=== PATIENT | female | born 1960 | race Caucasian/White ===

== ENCOUNTER 2016-04-08 15:36 | Emergency (ER) | payer OTHER ==
[2016-04-08] MEDS ORDERED: HYDROCODONE/ACETAMINOPHEN 5-325 MG TABLET PO ONE (16:05)
--- NOTE | 2016-04-08 16:05 | ER Document Report ---
ED Medical Screen (RME) - General Stated Complaint: FALL,LEFT KNEE PAIN Mode of Arrival: Wheelchair Information source: Patient Notes: 55 y/o F presents to ED c/o posterior left knee pain. Reports tripped on dog's leash. Denies numbness or tingling. I have greeted and performed a rapid initial assessment of this patient. A comprehensive ED assessment and evaluation of the patient, analysis of test results and completion of the medical decision making process will be conducted by additional ED providers. TRAVEL OUTSIDE OF THE [place] IN LAST 30 DAYS: No - Related Data Allergies/Adverse Reactions: levofloxacin [From Levaquin] Allergy (Verified 04/08/16 16:03) Past Medical History - Past Medical History Cardiac Medical History: Reports: Hx Hypertension Pulmonary Medical History: Reports: Hx Asthma, Hx Bronchitis Neurological Medical History: Reports: Hx Migraine Endocrine Medical History: Reports: Hx Diabetes Mellitus Type 2 GI Medical History: Reports: Hx Gastroesophageal Reflux Disease Past Surgical History: Reports: Hx Cardiac Surgery - Repair vsd, Hx Orthopedic Surgery - Left hand - Immunizations Hx Diphtheria, Pertussis, Tetanus Vaccination: Yes Physical Exam - Vital signs Vitals: Temp Pulse Resp BP Pulse Ox 98.0 F 78 16 139/75 H 97 04/08/16 15:59 04/08/16 15:59 04/08/16 15:59 04/08/16 15:59 04/08/16 15:59 - General General appearance: Appears well, Alert In distress: None - Respiratory Respiratory status: No respiratory distress Course - Vital Signs Vital signs: Temp Pulse Resp BP Pulse Ox 98.0 F 78 16 139/75 H 97 04/08/16 15:59 04/08/16 15:59 04/08/16 15:59 04/08/16 15:59 04/08/16 15:59
--- NOTE | 2016-04-08 18:08 | ER Document Report ---
HPI - HPI Patient complains to provider of: knee injury Onset: This morning Onset/Duration: Gradual Quality of pain: Achy Pain Level: 4 Context: Patient states she was walking her dog and tripped over the leash falling on her left knee. Patient states she continued to walk without significant pain that whenever she returned home and walked up her steps that the pain increased. Patient reports increased pain with flexion of her left knee. Associated Symptoms: Other - Left knee injury Exacerbated by: Movement, Walking Relieved by: Denies Similar symptoms previously: No Recently seen / treated by doctor: No - ROS ROS below otherwise negative: Yes Systems Reviewed and Negative: Yes All other systems reviewed and negative - CONSTITUTIONAL Constitutional: DENIES: Fever - REPRODUCTIVE Reproductive: DENIES: : - MUSCULOSKELETAL Musculoskeletal: REPORTS: Extremity pain - Left knee. 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 Family History: Reviewed & Not Pertinent, Malignancy - Mom- breast Ca, Other - Brother-HTN/FL Patient has suicidal ideation: No Patient has homicidal ideation: No - Past Medical History Cardiac Medical History: Reports: Hx Hypertension Pulmonary Medical History: Reports: Hx Asthma, Hx Bronchitis Neurological Medical History: Reports: Hx Migraine Endocrine Medical History: Reports: Hx Diabetes Mellitus Type 2 Renal/ Medical History: Denies: Hx Peritoneal Dialysis GI Medical History: Reports: Hx Gastroesophageal Reflux Disease Past Surgical History: Reports: Hx Cardiac Surgery - Repair vsd, Hx Orthopedic Surgery - Left hand - Immunizations Hx Diphtheria, Pertussis, Tetanus Vaccination: Yes Vertical Provider Document - CONSTITUTIONAL Agree With Documented VS: Yes Exam Limitations: No Limitations General Appearance: WD/WN, No Apparent Distress - INFECTION CONTROL TRAVEL OUTSIDE OF THE [place] IN LAST 30 DAYS: No - HEENT HEENT: Atraumatic, Normocephalic - NECK Neck: Normal Inspection, Supple - RESPIRATORY Respiratory: No Respiratory Distress O2 Sat by Pulse Oximetry: 97 - CARDIOVASCULAR Pulses: Normal: Dorsalis pedis - BACK Back: Normal Inspection - MUSCULOSKELETAL/EXTREMETIES Musculoskeletal/Extremeties: MAEW, Tender - Patient with left knee joint tenderness with flexion, No Edema Notes: Few small abrasions to the anterior aspect of left knee. No joint effusion. No laxity with varus or valgus maneuvers. - NEURO Level of Consciousness: Awake, Alert, Appropriate Motor/Sensory: No Motor Deficit - DERM Integumentary: Warm, Dry Course - Vital Signs Vital signs: Temp Pulse Resp BP Pulse Ox 98.0 F 78 16 139/75 H 97 04/08/16 15:59 04/08/16 15:59 04/08/16 15:59 04/08/16 15:59 04/08/16 15:59 - Diagnostic Test Radiology reviewed: Reports reviewed Procedures - Immobilization Left Knee Pre-Proc Neuro Vasc Exam: Normal Immobilizer type: Knee immobilizer Performed by: PCT Post-Proc Neuro Vasc Exam: Normal Alignment checked and good: Yes Discharge - Discharge Clinical Impression: Left knee sprain Qualifiers: Encounter type: initial encounter Involved ligament of knee: unspecified ligament Qualified Code(s): S83.92XA - Sprain of unspecified site of left knee, initial encounter Condition: Stable Disposition: HOME, SELF-CARE Instructions: Use of Crutches ([facility]), Ice & Elevation ([facility]), Oral Narcotic Medication ([facility]), Sprained Knee ([facility]), Knee Immobilizing Splint ([facility]) Additional Instructions: Return immediately for any new or worsening symptoms Followup with your primary care provider, call tomorrow to make a followup appointment Weightbearing as tolerated Follow-up with orthopedic DrJuan Carlos for further evaluation of left knee joint pain Prescriptions: Oxycodone HCl/Acetaminophen [Percocet 5-325 mg Tablet] 1 tab PO ASDIR PRN #15 tablet PRN Reason: Forms: Return to Work Referrals: DOMINGUEZ FOOTE MD [Primary Care Provider] - Follow up as needed [facility] [Provider Group] - Follow up in 3-5 days
[2016-04-08 19:54] VITALS: BP 132/84
== END 2016-04-08 19:49 | disposition home or self-care (01) ==
LOC: ER 15:36
DX: S83.92XA Sprain of unspecified site of left knee, initial encounter (principal); M25.562 Pain in left knee; X58.XXXA Exposure to other specified factors, initial encounter
CPT/HCPCS: 99283; 73562; L1830

== ENCOUNTER 2017-01-12 12:00 | Emergency (ER) | payer OTHER ==
[2017-01-12] MEDS ORDERED: IPRATROPIUM/ALBUTEROL 0.5-2.5 MG/3 ML AMPUL NEB ONE (12:21)
--- NOTE | 2017-01-12 12:23 | ER Document Report ---
ED Medical Screen (RME) - General Chief Complaint: Shortness Of Breath Stated Complaint: COUGH,HEADACHE,SHORTNESS OF BREATH Time Seen by Provider: 01/12/17 12:21 Mode of Arrival: Ambulatory Information source: Patient TRAVEL OUTSIDE OF THE [place] IN LAST 30 DAYS: No - HPI Patient complains to provider of: cough, wheeze Onset: Other - pt. has h/o asthma as a child with c/o of several week h/o productive cough , intermittent wheeze, sinus pressure and GARCIA. Did get flu shot this year. - Related Data Allergies/Adverse Reactions: levofloxacin [From Levaquin] Allergy (Verified 04/08/16 16:03) Home Medications: Current Home Medications Amitriptyline HCl 50 mg PO QHS 01/12/17 [History] Cimetidine [Tagamet Hb] 200 mg PO DAILY 01/12/17 [History] Diltiazem HCl [Diltiazem 24Hr ER] 2 tab PO DAILY 01/12/17 [History] Losartan/Hydrochlorothiazide [Losartan-Hctz 100-25 mg Tab] 1 each PO DAILY 01/12 [History] Pantoprazole Sodium [Protonix] 20 mg PO DAILY 01/12/17 [History] Past Medical History - Social History Chew tobacco use (# tins/day): No Frequency of alcohol use: None Drug Abuse: None - Past Medical History Cardiac Medical History: Reports: Hx Hypertension Pulmonary Medical History: Reports: Hx Asthma, Hx Bronchitis Neurological Medical History: Reports: Hx Migraine Endocrine Medical History: Reports: Hx Diabetes Mellitus Type 2 Renal/ Medical History: Denies: Hx Peritoneal Dialysis GI Medical History: Reports: Hx Gastroesophageal Reflux Disease Past Surgical History: Reports: Hx Cardiac Surgery - Repair vsd, Hx Orthopedic Surgery - Left hand - Immunizations Hx Diphtheria, Pertussis, Tetanus Vaccination: Yes Physical Exam - Vital signs Vitals: Temp Pulse Resp BP 99.7 F 107 H 20 152/78 H 01/12/17 12:06 01/12/17 12:06 01/12/17 12:06 01/12/17 12:06 Course - Vital Signs Vital signs: Temp Pulse Resp BP Pulse Ox 99.7 F 107 H 20 152/78 H 94 01/12/17 12:06 01/12/17 12:06 01/12/17 12:06 01/12/17 12:06 01/12/17 12:07
--- NOTE | 2017-01-12 12:50 | RADIOLOGY REPORT (SQ) ---
EXAM DESCRIPTION: CHEST PA/LAT COMPLETED DATE/TIME: 01/12/2017 12:42 pm REASON FOR STUDY: cough COMPARISON: 07/24/2015 EXAM PARAMETERS: NUMBER OF VIEWS: two views TECHNIQUE: Digital Frontal and Lateral radiographic views of the chest acquired. RADIATION DOSE: NA LIMITATIONS: none FINDINGS: LUNGS AND PLEURA: No opacities, masses or pneumothorax. No pleural effusion. MEDIASTINUM AND HILAR STRUCTURES: No masses or contour abnormalities. HEART AND VASCULAR STRUCTURES: Heart normal size. No evidence for failure. BONES: No acute findings. HARDWARE: None in the chest. OTHER: No other significant finding. IMPRESSION: NO SIGNIFICANT RADIOGRAPHIC FINDING IN THE CHEST. TECHNICAL DOCUMENTATION: JOB ID: [id number] [employer]- All Rights Reserved
[2017-01-12 12:52] LABS: ABSOLUTE EOSINOPHILS # (AUTO) 0.2 10^3/uL (0.0-0.6); ABSOLUTE LYMPHOCYTES (AUTO) 1.2 10^3/uL (0.5-4.7); ABSOLUTE MONOCYTES (AUTO) 0.8 10^3/uL (0.1-1.4); ABSOLUTE NEUT (AUTO) 5.3 10^3/uL (1.7-8.2); BASOPHILS % (AUTO) 0.3 % (0-2); EOSINOPHILS % (AUTO) 2.7 % (0-6); HEMATOCRIT 42.1 % (36.0-47.0); HEMOGLOBIN 14.4 g/dL (12.0-15.5); HGB HCT DIFFERENCE 1.1; LYMPHOCYTES % (AUTO) 16.2 % (13-45); MEAN CORPUSCULAR HEMOGLOBIN 30.2 pg (27.0-33.4); MEAN CORPUSCULAR HGB CONC 34.3 g/dL (32.0-36.0); MEAN CORPUSCULAR VOLUME 88 fl (80-97); MONOCYTES % (AUTO) 10.7 % (3-13); RED BLOOD COUNT 4.78 10^6/uL (3.72-5.28); SEGMENTED NEUTROPHILS % (AUTO) 70.1 % (42-78); WHITE BLOOD COUNT 7.5 10^3/uL (4.0-10.5)
[2017-01-12 13:15] LABS: ALANINE AMINOTRANSFERASE 48 U/L (9-52); ALBUMIN 4.3 g/dL (3.5-5.0); ALKALINE PHOSPHATASE 80 U/L (38-126); ANION GAP 10 (5-19); ASPARTATE AMINO TRANSFERASE 30 U/L (14-36); BILIRUBIN,DIRECT 0.4 mg/dL (0.0-0.4); BILIRUBIN,TOTAL 0.7 mg/dL (0.2-1.3); BLOOD UREA NITROGEN 16 mg/dL (7-20); CALCIUM 9.5 mg/dL (8.4-10.2); CARBON DIOXIDE 31 mmol/L (22-30); CHLORIDE 98 mmol/L (98-107); CREATININE RESULT 0.91 mg/dL (0.52-1.25); GLUCOSE 126 mg/dL (75-110); POTASSIUM 3.8 mmol/L (3.6-5.0); SODIUM 138.8 mmol/L (137-145); TOTAL PROTEIN 6.6 g/dL (6.3-8.2)
[2017-01-12] MEDS ORDERED: DEXAMETHASONE SOD PHOS INJ 10 MG/1 ML VIAL IM ONE (13:39)
[2017-01-12] MEDS ORDERED: HYDROXYZINE HCL 10 MG TABLET PO ONE (13:39)
--- NOTE | 2017-01-12 13:42 | ER Document Report ---
ED General - General Chief Complaint: Shortness Of Breath Stated Complaint: COUGH,HEADACHE,SHORTNESS OF BREATH Time Seen by Provider: 01/12/17 12:21 Mode of Arrival: Ambulatory Information source: Patient Notes: 56-year-old female history of asthma presents with complaints of asthma exacerbation. Patient denies any fevers or chills denies any nausea vomiting or diarrhea. Patient notes she was seen by primary care physician was started on doxycycline for probable bronchitis. Patient was given inhaler and notes some improvement with breathing. Patient denies any productivity to cough. Patient was given Decadron and noted improvement initially but then symptoms worsen TRAVEL OUTSIDE OF THE [place] IN LAST 30 DAYS: No - HPI Onset: Last week Onset/Duration: Waxing and waning Quality of pain: No pain Severity: Mild Pain Level: Denies Associated symptoms: Nonproductive cough, Shortness of breath Exacerbated by: Walking Relieved by: Denies Similar symptoms previously: Yes Recently seen / treated by doctor: Yes - Related Data Allergies/Adverse Reactions: levofloxacin [From Levaquin] Allergy (Verified 04/08/16 16:03) Home Medications: Current Home Medications Amitriptyline HCl 50 mg PO QHS 01/12/17 [History] Cimetidine [Tagamet Hb] 200 mg PO DAILY 01/12/17 [History] Diltiazem HCl [Diltiazem 24Hr ER] 2 tab PO DAILY 01/12/17 [History] Losartan/Hydrochlorothiazide [Losartan-Hctz 100-25 mg Tab] 1 each PO DAILY 01/12 [History] Pantoprazole Sodium [Protonix] 20 mg PO DAILY 01/12/17 [History] Past Medical History - General Information source: Patient - Social History Smoking Status: Former Smoker Cigarette use (# per day): No Chew tobacco use (# tins/day): No Smoking Education Provided: No Frequency of alcohol use: None Drug Abuse: None Family History: Reviewed & Not Pertinent, Malignancy - Mom- breast Ca, Other - Brother-HTN/AL Patient has suicidal ideation: No Patient has homicidal ideation: No - Past Medical History Cardiac Medical History: Reports: Hx Hypertension Pulmonary Medical History: Reports: Hx Asthma, Hx Bronchitis Neurological Medical History: Reports: Hx Migraine Endocrine Medical History: Reports: Hx Diabetes Mellitus Type 2 Renal/ Medical History: Denies: Hx Peritoneal Dialysis GI Medical History: Reports: Hx Gastroesophageal Reflux Disease Past Surgical History: Reports: Hx Cardiac Surgery - Repair vsd, Hx Orthopedic Surgery - Left hand - Immunizations Hx Diphtheria, Pertussis, Tetanus Vaccination: Yes Review of Systems - Review of Systems Notes: REVIEW OF SYSTEMS: CONSTITUTIONAL : Denies fever, chills, or sweats. Denies recent illness. EENT: Denies eye, ear, throat, or mouth pain or symptoms. Denies nasal or sinus congestion or discharge. Denies throat, tongue, or mouth swelling or difficulty swallowing. CARDIOVASCULAR: Denies chest pain. Denies palpitations or racing or irregular heart beat. Denies ankle edema. RESPIRATORY: Admits to wheezing cough shortness of breath GASTROINTESTINAL: Denies abdominal pain or distention. Denies nausea, vomiting , or diarrhea. Denies blood in vomitus, stools, or per rectum. Denies black, tarry stools. Denies constipation. GENITOURINARY: Denies difficulty urinating, painful urination, burning, frequency, blood in urine, or discharge. FEMALE GENITOURINARY: Denies vaginal bleeding, heavy or abnormal periods, irregular periods. Denies vaginal discharge or odor. MUSCULOSKELETAL: Denies back or neck pain or stiffness. Denies joint pain or swelling. SKIN: Denies rash, lesions or sores. HEMATOLOGIC : Denies easy bruising or bleeding. LYMPHATIC: Denies swollen, enlarged glands. NEUROLOGICAL: Denies confusion or altered mental status. Denies passing out or loss of consciousness. Denies dizziness or lightheadedness. Denies headache. Denies weakness or paralysis or loss of use of either side. Denies problems with gait or speech. Denies sensory loss, numbness, or tingling. Denies seizures. PSYCHIATRIC: Denies anxiety or stress. Denies depression, suicidal ideation, or homicidal ideation. ALL OTHER SYSTEMS REVIEWED AND NEGATIVE. PHYSICAL EXAMINATION: GENERAL: Well-appearing, well-nourished and in no acute distress. HEAD: Atraumatic, normocephalic. EYES: Pupils equal round and reactive to light, extraocular movements intact, conjunctiva are normal. ENT: Nares patent, oropharynx clear without exudates. Moist mucous membranes. NECK: Normal range of motion, supple without lymphadenopathy LUNGS: Faint inspiratory expiratory wheezing left upper lobe, and this noted to be improvement prior to her arrival when she had received breathing treatments HEART: Regular rate and rhythm without murmurs ABDOMEN: Soft, nontender, nondistended abdomen. No guarding, no rebound. No masses appreciated. Female : deferred Musculoskeletal: Normal range of motion, no pitting or edema. No cyanosis. NEUROLOGICAL: Cranial nerves grossly intact. Normal speech, normal gait. Normal sensory, motor exams PSYCH: Normal mood, normal affect. SKIN: Warm, Dry, normal turgor, no rashes or lesions noted. Dictation was performed using [employer] voice recognition software Physical Exam - Vital signs Vitals: Temp Pulse Resp BP 99.7 F 107 H 20 152/78 H 01/12/17 12:06 01/12/17 12:06 01/12/17 12:06 01/12/17 12:06 Course - Re-evaluation Re-evalutation: 01/12/17 16:28 Patient was given breathing treatments and was noted to be tachypneic afterwards , she is in no respiratory distress, we discussed the use of Decadron and I will give her some Atarax here for the jitteriness that it seems to cause her. Patient overall looks well is in no specific distress we discussed concerns for pulmonary emboli and patient has no risk factors for this. Patient does have audible wheezing with no respiratory difficulty if I do not leave this is the cause of her symptoms. Patient will be discharged home with a very strict return precautions she states she understands and will return if there worsening symptoms or if her symptoms do not improve After performing a Medical Screening Examination, I estimate there is LOW risk for RUPTURED ESOPHAGUS, PNEUMOTHORAX, PULMONARY EMBOLISM, ACUTE CORONARY SYNDROME, OR THORACIC AORTIC DISSECTION, thus I consider the discharge disposition reasonable. I have reevaluated this patient multiple times and no significant life threatening changes are noted. The patient and I have discussed the diagnosis and risks, and we agree with discharging home with close follow-up. We also discussed returning to the Emergency Department immediately if new or worsening symptoms occur. We have discussed the symptoms which are most concerning (e.g., bloody sputum, worsening pain or shortness of breath) that necessitate immediate return. - Vital Signs Vital signs: Temp Pulse Resp BP Pulse Ox 99.5 F 102 H 18 131/73 H 95 01/12/17 14:01 01/12/17 14:01 01/12/17 14:01 01/12/17 14:01 01/12/17 14:01 - Laboratory Result Diagrams: 01/12/17 12:30 01/12/17 12:30 Laboratory results interpreted by me: 01/12/17 12:30 Carbon Dioxide 31 H Glucose 126 H - Diagnostic Test Radiology reviewed: Image reviewed, Reports reviewed Discharge - Discharge Clinical Impression: Asthma exacerbation Qualifiers: Asthma severity: mild Asthma persistence: intermittent Qualified Code(s): J45.21 - Mild intermittent asthma with (acute) exacerbation Condition: Stable Disposition: HOME, SELF-CARE Instructions: Asthma ([facility]) Additional Instructions: Follow up with your physician tomorrow for further care or return to the ED IMMEDIATELY if symptoms worsen or new concerns occur. If you cannot afford to follow up with your primary care physician a list of low cost clinics have been provided at the end of your discharge papers as well. Referrals: SOREN RUST MD [Primary Care Provider] - Follow up in 3-5 days
[2017-01-12 14:03] VITALS: BP 131/73
== END 2017-01-12 14:00 | disposition home or self-care (01) ==
LOC: ER 12:00
DX: J45.21 Mild intermittent asthma with (acute) exacerbation (principal); R06.02 Shortness of breath; R05 Cough; R51 Headache; Z79.899 Other long term (current) drug therapy; Z87.891 Personal history of nicotine dependence
CPT/HCPCS: 94640; 99285; 96372; 36415; 85025; 80053; 87804; 71020; J1100; J7620

== ENCOUNTER 2017-01-14 19:30 | Emergency (ER) | payer OTHER ==
[2017-01-14] MEDS ORDERED: ACETAMINOPHEN 325 MG TABLET PO ONE (22:09)
--- NOTE | 2017-01-14 22:12 | ER Document Report ---
ED Medical Screen (RME) - General Chief Complaint: Flu Symptoms Stated Complaint: FEVER,DIFFICULTY BREATHING Time Seen by Provider: 01/14/17 22:09 Mode of Arrival: Ambulatory Information source: Patient Notes: 56-year-old female presents to ED for temp of 102.1 at 6 PM she states she did not take anything for the temp but he was down when she was seen at the desk earlier. Now her temperature is 101.5. She states she went to urgent care on 01/03/2017 and was started on doxycycline for what they stated could have been bronchitis or walking pneumonia. She states she was seen on Friday and had labs and x-rays done and was given some steroids and Atarax and discharged home. At this time I saw her in the her O2 sat was 96% pulse was 107 temperature was 101.7. She states last time she got Tylenol or Motrin was last night. She has a history of VSD repair and 61 sinusitis with surgery hand surgery for dog bite and high blood pressure. Her lungs are clear but slightly diminished in the pit area. I have greeted and performed a rapid initial assessment of this patient. A comprehensive ED assessment and evaluation of the patient, analysis of test results and completion of medical decision making process will be conducted by an additional ED providers. TRAVEL OUTSIDE OF THE [place] IN LAST 30 DAYS: No - Related Data Allergies/Adverse Reactions: levofloxacin [From Levaquin] Allergy (Verified 04/08/16 16:03) Past Medical History - Past Medical History Cardiac Medical History: Reports: Hx Hypertension Pulmonary Medical History: Reports: Hx Asthma, Hx Bronchitis Neurological Medical History: Reports: Hx Migraine Endocrine Medical History: Reports: Hx Diabetes Mellitus Type 2 Renal/ Medical History: Denies: Hx Peritoneal Dialysis GI Medical History: Reports: Hx Gastroesophageal Reflux Disease Past Surgical History: Reports: Hx Cardiac Surgery - Repair vsd, Hx Orthopedic Surgery - Left hand - Immunizations Hx Diphtheria, Pertussis, Tetanus Vaccination: Yes Physical Exam - Vital signs Vitals: Temp Pulse Resp BP Pulse Ox 99.6 F 111 H 22 H 133/76 H 93 01/14/17 20:13 01/14/17 20:13 01/14/17 20:13 01/14/17 20:13 01/14/17 20:13 Course - Vital Signs Vital signs: Temp Pulse Resp BP Pulse Ox 101.5 F H 109 H 16 133/76 H 96 12/05/17 22:08 01/14/17 22:08 01/14/17 22:08 01/14/17 20:13 01/14/17 22:08
--- NOTE | 2017-01-14 23:09 | RADIOLOGY REPORT (SQ) ---
EXAM DESCRIPTION: CHEST PA/LAT CLINICAL HISTORY: 56 years, Female, cough congestion fever COMPARISON: None. NUMBER OF VIEWS: 1. TECHNIQUE: Frontal radiograph. LIMITATIONS: None. FINDINGS: Adequate lung volumes, clear parenchyma, normal cardiac silhouette. Intact bony thorax. IMPRESSION: No acute cardiopulmonary findings. 2011 [employer]- All Rights Reserved
[2017-01-14 23:16] LABS: ABSOLUTE BASOPHILS # (AUTO) 0.1 10^3/uL (0.0-0.2); ABSOLUTE LYMPHOCYTES (AUTO) 1.5 10^3/uL (0.5-4.7); ABSOLUTE MONOCYTES (AUTO) 1.6 10^3/uL (0.1-1.4); ABSOLUTE NEUT (AUTO) 5.6 10^3/uL (1.7-8.2); BASOPHILS % (AUTO) 0.8 % (0-2); EOSINOPHILS % (AUTO) 0.5 % (0-6); HEMATOCRIT 42.4 % (36.0-47.0); HEMOGLOBIN 14.5 g/dL (12.0-15.5); HGB HCT DIFFERENCE 1.1; MEAN CORPUSCULAR HEMOGLOBIN 30.1 pg (27.0-33.4); MEAN CORPUSCULAR HGB CONC 34.2 g/dL (32.0-36.0); MEAN CORPUSCULAR VOLUME 88 fl (80-97); MONOCYTES % (AUTO) 18.2 % (3-13); RED BLOOD COUNT 4.81 10^6/uL (3.72-5.28); RED CELL DISTRIBUTION WIDTH 14.3 % (11.5-14.0); SEGMENTED NEUTROPHILS % (AUTO) 63.5 % (42-78); WHITE BLOOD COUNT 8.8 10^3/uL (4.0-10.5)
[2017-01-14 23:26] LABS: ALANINE AMINOTRANSFERASE 59 U/L (9-52); ALBUMIN 4.5 g/dL (3.5-5.0); ALKALINE PHOSPHATASE 80 U/L (38-126); ANION GAP 13 (5-19); ASPARTATE AMINO TRANSFERASE 47 U/L (14-36); BILIRUBIN,DIRECT 0.5 mg/dL (0.0-0.4); BILIRUBIN,TOTAL 0.6 mg/dL (0.2-1.3); BLOOD UREA NITROGEN 14 mg/dL (7-20); CALCIUM 9.7 mg/dL (8.4-10.2); CARBON DIOXIDE 29 mmol/L (22-30); CHLORIDE 93 mmol/L (98-107); CREATININE RESULT 0.97 mg/dL (0.52-1.25); GLUCOSE 91 mg/dL (75-110); POTASSIUM 4.2 mmol/L (3.6-5.0); SODIUM 134.6 mmol/L (137-145); TOTAL PROTEIN 7.1 g/dL (6.3-8.2)
[2017-01-14 23:27] LABS: APPEARANCE,URINE SLIGHTLY-CLOUDY; BILIRUBIN,URINE NEGATIVE (NEGATIVE); GLUCOSE, URINE NEGATIVE (NEGATIVE); KETONES,URINE NEGATIVE (NEGATIVE); LEUKOCYTE ESTERASE,URINE NEGATIVE (NEGATIVE); NITRITE,URINE NEGATIVE (NEGATIVE); PROTEIN,URINE NEGATIVE (NEGATIVE); URINE SPECIFIC GRAVITY 1.015; UROBILINOGEN,URINE NEGATIVE mg/dL (<2.0)
[2017-01-14 23:35] LABS: BACTERIA,URINE TRACE /HPF; RBC,URINE 0-1 /HPF; WBC,URINE 0-1 /HPF
[2017-01-15 00:01] VITALS: BP 139/80
[2017-01-15] MEDS ORDERED: ONDANSETRON ODT 4 MG TAB (6 TAB/DSPK) PO PRN (00:51)
--- NOTE | 2017-01-15 00:52 | ER Document Report ---
ED General - General Chief Complaint: Flu Symptoms Stated Complaint: FEVER,DIFFICULTY BREATHING Time Seen by Provider: 01/14/17 22:09 Mode of Arrival: Ambulatory Notes: Patient is a 56 year old female who presents with approximately 7 days of cough , sinus pressure, nausea, intermittent abdominal cramping, and generalized myalgias and arthralgias. Patient was seen in this emergency room 2 days ago and states that since that time she has had persistent symptoms despite trying [id number] remedies, dexamethasone, and a course of doxycycline. She knows that she has not vomited but has felt persistently nauseated. She has not noted anything seems to worsen her symptoms. She denies a history of similar symptoms in the past. She denies any focal abdominal pain. No chest pain. She reports that she has had a fever at home. TRAVEL OUTSIDE OF THE [place] IN LAST 30 DAYS: No - Related Data Allergies/Adverse Reactions: levofloxacin [From Levaquin] Allergy (Verified 04/08/16 16:03) Past Medical History - General Information source: Patient - Social History Smoking Status: Never Smoker Frequency of alcohol use: None Drug Abuse: None Family History: Reviewed & Not Pertinent, Malignancy - Mom- breast Ca, Other - Brother-HTN/[place] Patient has suicidal ideation: No Patient has homicidal ideation: No - Past Medical History Cardiac Medical History: Reports: Hx Hypertension Pulmonary Medical History: Reports: Hx Asthma, Hx Bronchitis Neurological Medical History: Reports: Hx Migraine Endocrine Medical History: Reports: Hx Diabetes Mellitus Type 2 Renal/ Medical History: Denies: Hx Peritoneal Dialysis GI Medical History: Reports: Hx Gastroesophageal Reflux Disease Past Surgical History: Reports: Hx Cardiac Surgery - Repair vsd, Hx Orthopedic Surgery - Left hand - Immunizations Hx Diphtheria, Pertussis, Tetanus Vaccination: Yes Review of Systems - Review of Systems Notes: Constitutional: Positive for fever. Positive for generalized fatigue HENT: Negative for sore throat. Eyes: Negative for visual changes. Cardiovascular: Negative for chest pain. Respiratory: Negative for shortness of breath. Gastrointestinal: Negative for abdominal pain, positive for nausea Genitourinary: Negative for dysuria. Musculoskeletal: Negative for back pain. Skin: Negative for rash. Neurological: Negative for headaches, weakness or numbness. 10 point ROS negative except as marked above and in HPI. Physical Exam - Vital signs Vitals: Temp Pulse Resp BP Pulse Ox 99.6 F 111 H 22 H 133/76 H 93 01/14/17 20:13 01/14/17 20:13 01/14/17 20:13 01/14/17 20:13 01/14/17 20:13 Interpretation: Tachycardic Notes: PHYSICAL EXAMINATION: GENERAL: Appears mildly uncomfortable but in no acute distress HEAD: Atraumatic, normocephalic. EYES: Pupils equal round and reactive to light, extraocular movements intact, sclera anicteric, conjunctiva are normal. ENT: nares patent, oropharynx clear without exudates. Moderately dry mucous membranes. NECK: Normal range of motion, supple without lymphadenopathy LUNGS: Breath sounds clear to auscultation bilaterally and equal. No wheezes rales or rhonchi. HEART: Regular rate and rhythm without murmurs ABDOMEN: Soft, nontender, normoactive bowel sounds. No guarding, no rebound. No masses appreciated. EXTREMITIES: Normal range of motion, no pitting or edema. No cyanosis. NEUROLOGICAL: No focal neurological deficits. Moves all extremities spontaneously and on command. PSYCH: Normal mood, normal affect. SKIN: Warm, Dry, normal turgor, no rashes or lesions noted. Course - Re-evaluation Re-evalutation: 01/15/17 00:51 Patient presents with cough, vomiting, diarrhea, and fever at home consistent with a diagnosis of influenza. Influenza testing is positive. Patient is overall well in appearance, in no acute distress. Lung sounds clear. Able to tolerate oral intake without difficulty here in the emergency department. After risks and benefits conversation with the patient regarding the use of Tamiflu, they have elected to use supportive care without Tamiflu based on concerns about lack of efficacy as well as the side effect profile. At this time will discharge with return precautions and follow-up recommendations. Verbal discharge instructions given a the bedside and opportunity for questions given. Medication warnings reviewed. Patient is in agreement with this plan and has verbalized understanding of return precautions and the need for primary care follow-up in the next 24-72 hours. - Vital Signs Vital signs: Temp Pulse Resp BP Pulse Ox 98.5 F 106 H 16 139/80 H 93 01/14/17 23:53 01/14/17 23:53 01/14/17 23:53 01/14/17 23:53 01/14/17 23:53 - Laboratory Result Diagrams: 01/14/17 22:45 01/14/17 22:45 Laboratory results interpreted by me: 01/14/17 01/14/17 22:45 22:45 RDW 14.3 H Monocytes % 18.2 H Absolute Monocytes 1.6 H Sodium 134.6 L Chloride 93 L Est GFR (Non-Af Amer) 59 L Direct Bilirubin 0.5 H AST 47 H ALT 59 H - Diagnostic Test Radiology reviewed: Image reviewed, Reports reviewed Discharge - Discharge Clinical Impression: Influenza A Condition: Good Disposition: HOME, SELF-CARE Additional Instructions: You have influenza. There is no treatment that is effective for this diagnosis other than supportive care at home. This includes drinking plenty of fluids, using Tylenol or ibuprofen as needed for fever and discomfort, and Zofran as needed for nausea and vomiting. Please follow closely with you primary care physician the next 1-2 days regarding this diagnosis. Return to the emergency department immediately if you began to have persistent vomiting prevents you from being able to keep fluids down for more than 12 hours, you pass out, you began having difficulty breathing, you become confused, or you have any other symptoms that are worrisome to you. Forms: Return to Work Referrals: SOREN RUST MD [Primary Care Provider] - Follow up as needed
== END 2017-01-15 01:08 | disposition home or self-care (01) ==
LOC: ER 19:30
DX: J11.1 Influenza due to unidentified influenza virus with other respiratory manifestations (principal); R50.9 Fever, unspecified; R06.00 Dyspnea, unspecified
CPT/HCPCS: 36415; 71020; 80053; 81001; 85025; 87040; 87070; 87804; 87880; 99284

== ENCOUNTER 2017-05-05 17:05 | Emergency (ER) | payer OTHER ==
[2017-05-05] MEDS ORDERED: NORMAL SALINE 1000 ML 1,000 ML IV ONE (18:41)
--- NOTE | 2017-05-05 18:42 | ER Document Report ---
ED Medical Screen (RME) - General Chief Complaint: Rectal Bleeding Stated Complaint: ABDOMINAL PAIN Time Seen by Provider: 05/05/17 18:40 Notes: Patient states she has had 3 days of vomiting abdominal pain and diarrhea. Today the stool has become bloody. She denies being on any blood thinners. She states she has no chronic medical problems. TRAVEL OUTSIDE OF THE [place] IN LAST 30 DAYS: No - Related Data Allergies/Adverse Reactions: levofloxacin [From Levaquin] Allergy (Verified 05/05/17 17:08) Past Medical History - Social History Chew tobacco use (# tins/day): No Frequency of alcohol use: None Drug Abuse: None - Past Medical History Cardiac Medical History: Reports: Hx Hypertension Pulmonary Medical History: Reports: Hx Asthma, Hx Bronchitis Neurological Medical History: Reports: Hx Migraine Endocrine Medical History: Reports: Hx Diabetes Mellitus Type 2 Renal/ Medical History: Denies: Hx Peritoneal Dialysis GI Medical History: Reports: Hx Gastroesophageal Reflux Disease Past Surgical History: Reports: Hx Cardiac Surgery - Repair vsd, Hx Orthopedic Surgery - Left hand - Immunizations Hx Diphtheria, Pertussis, Tetanus Vaccination: Yes Physical Exam - Vital signs Vitals: Temp Pulse Resp BP Pulse Ox 99.9 F 124 H 16 144/93 H 95 05/05/17 17:20 05/05/17 17:20 05/05/17 17:20 05/05/17 17:20 05/05/17 17:20 Course - Vital Signs Vital signs: Temp Pulse Resp BP Pulse Ox 99.9 F 124 H 16 144/93 H 95 05/05/17 17:20 05/05/17 17:20 05/05/17 17:20 05/05/17 17:20 05/05/17 17:20 Doctor's Discharge - Discharge Referrals: DOMINGUEZ FOOTE MD [Primary Care Provider] - Follow up as needed
[2017-05-05 19:57] LABS: APPEARANCE,URINE CLEAR; BILIRUBIN,URINE NEGATIVE (NEGATIVE); COLOR,URINE YELLOW; GLUCOSE, URINE NEGATIVE (NEGATIVE); KETONES,URINE NEGATIVE (NEGATIVE); LEUKOCYTE ESTERASE,URINE TRACE (NEGATIVE); NITRITE,URINE NEGATIVE (NEGATIVE); PROTEIN,URINE NEGATIVE (NEGATIVE)
[2017-05-05 21:12] LABS: ABSOLUTE EOSINOPHILS # (AUTO) 0.1 10^3/uL (0.0-0.6); ABSOLUTE LYMPHOCYTES (AUTO) 2.2 10^3/uL (0.5-4.7); ABSOLUTE MONOCYTES (AUTO) 1.4 10^3/uL (0.1-1.4); ABSOLUTE NEUT (AUTO) 8.8 10^3/uL (1.7-8.2); BASOPHILS % (AUTO) 0.2 % (0-2); EOSINOPHILS % (AUTO) 0.6 % (0-6); HEMATOCRIT 40.6 % (36.0-47.0); HEMOGLOBIN 13.6 g/dL (12.0-15.5); LYMPHOCYTES % (AUTO) 17.8 % (13-45); MEAN CORPUSCULAR HEMOGLOBIN 29.1 pg (27.0-33.4); MEAN CORPUSCULAR HGB CONC 33.4 g/dL (32.0-36.0); MEAN CORPUSCULAR VOLUME 87 fl (80-97); MONOCYTES % (AUTO) 11.5 % (3-13); PLATELET COUNT 183 10^3/uL (150-450); RED BLOOD COUNT 4.66 10^6/uL (3.72-5.28); RED CELL DISTRIBUTION WIDTH 14.5 % (11.5-14.0); SEGMENTED NEUTROPHILS % (AUTO) 69.9 % (42-78); TOTAL CELLS COUNTED % (AUTO) 100 %; WHITE BLOOD COUNT 12.5 10^3/uL (4.0-10.5)
[2017-05-05 21:31] LABS: ALANINE AMINOTRANSFERASE 43 U/L (9-52); ALBUMIN 3.7 g/dL (3.5-5.0); ALKALINE PHOSPHATASE 69 U/L (38-126); ANION GAP 6 (5-19); ASPARTATE AMINO TRANSFERASE 24 U/L (14-36); BILIRUBIN,DIRECT 0.1 mg/dL (0.0-0.4); BILIRUBIN,TOTAL 0.6 mg/dL (0.2-1.3); BLOOD UREA NITROGEN 14 mg/dL (7-20); CALCIUM 9.2 mg/dL (8.4-10.2); CARBON DIOXIDE 34 mmol/L (22-30); CHLORIDE 96 mmol/L (98-107); GLUCOSE 97 mg/dL (75-110); POTASSIUM 3.6 mmol/L (3.6-5.0); SODIUM 136.1 mmol/L (137-145); TOTAL PROTEIN 5.9 g/dL (6.3-8.2)
[2017-05-05] MEDS ORDERED: MORPHINE SULFATE 10 MG/ML INJ IV PRN (21:38)
[2017-05-05] MEDS ORDERED: ONDANSETRON HCL INJ/PF 4 MG/2 ML SDV IV ONE (21:38)
[2017-05-05] MEDS ORDERED: RINGERS SOLUTION,LACTATED 1,000 ML IV ONE (21:44)
[2017-05-05] MEDS ORDERED: CEPHALEXIN 500 MG CAPSULE PO ONE (21:45)
[2017-05-05] MEDS ORDERED: METRONIDAZOLE 500 MG TABLET PO ONE (21:45)
--- NOTE | 2017-05-05 21:48 | ER Document Report ---
ED General - General Chief Complaint: Rectal Bleeding Stated Complaint: ABDOMINAL PAIN Time Seen by Provider: 05/05/17 18:40 Notes: Patient is a 56-year-old female without chronic medical problems who presents with 3 days of nausea, vomiting, diarrhea, fever, and began having some bloody stools earlier today. She also describes a dull, constant aching pain to her lower abdomen. This has been unchanged since onset. Nothing improves or worsens that pain. She saw her primary care doctor earlier today, the CT scan of her abdomen was performed which apparently showed a regional colitis. She states that she has scheduled follow-up with GI in the morning for further evaluation and consideration of colonoscopy. She states that for the past several days she has had difficulty tolerating oral intake and oral fluids secondary to nausea and vomiting. She notes that she has been taking some Zofran with moderate improvement of her symptoms. She denies any history of similar symptoms in the past. She has no history of inflammatory colitis or any chronic GI issue. She denies any cough, sputum production, headache, neck pain or altered mental status. TRAVEL OUTSIDE OF THE [place] IN LAST 30 DAYS: No - Related Data Allergies/Adverse Reactions: levofloxacin [From Levaquin] Allergy (Verified 05/05/17 17:08) Past Medical History - General Information source: Patient - Social History Smoking Status: Never Smoker Chew tobacco use (# tins/day): No Frequency of alcohol use: None Drug Abuse: None Lives with: Spouse/Significant other Family History: Reviewed & Not Pertinent, Malignancy - Mom- breast Ca, Other - Brother-HTN/[place] Patient has suicidal ideation: No Patient has homicidal ideation: No - Past Medical History Cardiac Medical History: Reports: Hx Hypertension Pulmonary Medical History: Reports: Hx Asthma, Hx Bronchitis Neurological Medical History: Reports: Hx Migraine Endocrine Medical History: Reports: Hx Diabetes Mellitus Type 2 Renal/ Medical History: Denies: Hx Peritoneal Dialysis GI Medical History: Reports: Hx Gastroesophageal Reflux Disease Past Surgical History: Reports: Hx Cardiac Surgery - Repair vsd, Hx Orthopedic Surgery - Left hand - Immunizations Hx Diphtheria, Pertussis, Tetanus Vaccination: Yes Review of Systems - Review of Systems Notes: Constitutional: Positive for fever. HENT: Negative for sore throat. Eyes: Negative for visual changes. Cardiovascular: Negative for chest pain. Respiratory: Negative for shortness of breath. Gastrointestinal: Positive for abdominal pain, vomiting and diarrhea. Positive for hematochezia. Genitourinary: Negative for dysuria. Musculoskeletal: Negative for back pain. Skin: Negative for rash. Neurological: Negative for headaches, weakness or numbness. 10 point ROS negative except as marked above and in HPI. Physical Exam - Vital signs Vitals: Temp Pulse Resp BP Pulse Ox 99.9 F 124 H 16 144/93 H 95 05/05/17 17:20 05/05/17 17:20 05/05/17 17:20 05/05/17 17:20 05/05/17 17:20 Interpretation: Tachycardic Notes: PHYSICAL EXAMINATION: GENERAL: Appears moderately uncomfortable but in no acute distress HEAD: Atraumatic, normocephalic. EYES: Pupils equal round and reactive to light, extraocular movements intact, sclera anicteric, conjunctiva are normal. ENT: nares patent, oropharynx clear without exudates. Dry mucous membranes. NECK: Normal range of motion, supple without lymphadenopathy LUNGS: Breath sounds clear to auscultation bilaterally and equal. No wheezes rales or rhonchi. HEART: Regular tachycardia without murmurs ABDOMEN: Soft, mild tenderness to palpation of the right lower quadrant and suprapubic region without rebound or guarding. No other localized areas of tenderness. EXTREMITIES: Normal range of motion, no pitting or edema. No cyanosis. NEUROLOGICAL: No focal neurological deficits. Moves all extremities spontaneously and on command. PSYCH: Normal mood, normal affect. SKIN: Warm, Dry, normal turgor, no rashes or lesions noted. Course - Re-evaluation Re-evalutation: 05/05/17 21:46 Patient presents with 3 days of nausea, vomiting, diarrhea and a small amount of blood and some of her diarrhea today likely secondary to multiple bouts of diarrhea. She has no gross blood on rectal examination. Her abdominal examination shows some diffuse tenderness to the lower right abdomen as well as the suprapubic region. Patient has CT scan of her abdomen pelvis earlier today which showed likely colitis and she states "diffuse mucosal wall thickening" per what her doctor told her on the phone. She is scheduled to see a GI doctor tomorrow for colonoscopy and associated biopsy. She is here more for symptom control. Her laboratories are overall unremarkable. No significant anemia, mild leukocytosis, no evidence of significant dehydration by labs although the patient is significantly tachycardic and does appear clinically dehydrated on examination. Will not proceed with additional imaging as patient just had a CT of her abdomen pelvis less than 24 hours ago that did not show any acute life- threatening pathology, likely findings consistent with an infectious verus inflammatory colitis. Moreeover, she already has appropriate follow-up and consultation with GI in less than 24 hours as a response to the CT scan. Will provide additional IV fluids, antiemetics, pain control and reassess. Patient will also be p.o. challenged. I will also empirically begin antibiotics as patient is having dysentery at this time with associated fever warranting oral antibiotic treatment. 05/06/17 00:01 On recheck of patient's vitals are heart rate is currently 96 done manually at the bedside by me. She has tolerated oral intake without difficulty. Pain is resolved. She is is resting comfortably currently. Will discharge home on cephalexin and Flagyl and coverage for an infectious colitis. Patient has follow-up with GI tomorrow for a colonoscopy and further evaluation of the etiology of her vomiting and diarrhea. Repeat abdominal exam is benign without any focal areas of tenderness, rebound or guarding. Given her improvement in vital signs, her ability to tolerate oral intake, and a very close appropriate follow-up plan I believe she is safe for discharge home. At this time will discharge with return precautions and follow-up recommendations. Verbal discharge instructions given a the bedside and opportunity for questions given. Medication warnings reviewed. Patient is in agreement with this plan and has verbalized understanding of return precautions and the need for primary care follow-up tomorrow as scheduled. - Vital Signs Vital signs: Temp Pulse Resp BP Pulse Ox 97.7 F 96 20 107/66 95 05/06/17 00:10 05/06/17 00:10 05/06/17 00:10 05/06/17 00:10 05/06/17 00:10 - Laboratory Result Diagrams: 05/05/17 20:44 05/05/17 20:44 Laboratory results interpreted by me: 05/05/17 05/05/17 05/05/17 19:23 20:44 20:44 WBC 12.5 H RDW 14.5 H Absolute Neutrophils 8.8 H Sodium 136.1 L Chloride 96 L Carbon Dioxide 34 H Total Protein 5.9 L Urine Urobilinogen 2.0 H Ur Leukocyte Esterase TRACE H Discharge - Discharge Clinical Impression: Nausea vomiting and diarrhea, Hematochezia, Infectious colitis Condition: Good Disposition: HOME, SELF-CARE Additional Instructions: Your being discharged home on antibiotics to treat a likely infectious colitis based on your reported CT results as well as your history. Continue to keep yourself very hydrated. Drink Pedialyte or Gatorade if you are unable to tolerate food. Take Zofran you have available to at home as needed for nausea and vomiting. For your pain: Take ibuprofen 600 mg and acetaminophen 1000 mg every 6 hours together as needed for pain. Take antibiotics as directed. Follow-up with your GI doctor tomorrow as scheduled. Return if you have worsening pain, persistent vomiting, become unable to tolerate fluids, or have any other symptoms that are worrisome to you. Prescriptions: Cephalexin Monohydrate [Keflex 500 mg Capsule] 500 mg PO Q6H 7 Days capsule Metronidazole [Flagyl 500 mg Tablet] 500 mg PO Q6H #28 tablet Forms: Return to Work Referrals: DOMINGUEZ FOOTE MD [Primary Care Provider] - Follow up tomorrow
[2017-05-06 00:44] VITALS: BP 107/66
== END 2017-05-06 00:10 | disposition home or self-care (01) ==
LOC: ER 17:05
DX: A09 Infectious gastroenteritis and colitis, unspecified (principal); K92.1 Melena; R11.2 Nausea with vomiting, unspecified; R50.9 Fever, unspecified; R10.30 Lower abdominal pain, unspecified; R00.0 Tachycardia, unspecified; R10.31 Right lower quadrant pain; J45.909 Unspecified asthma, uncomplicated; E11.9 Type 2 diabetes mellitus without complications; I10 Essential (primary) hypertension
CPT/HCPCS: 99283; 96361; 96375; 96365; 36415; 85025; 80053; 81001; J2270; J2405; J7030; J7120

== ENCOUNTER 2017-05-06 11:17 | Emergency (ER) | payer OTHER ==
[2017-05-06] MEDS ORDERED: NORMAL SALINE 1000 ML 1,000 ML IV ONE (12:20)
[2017-05-06] MEDS ORDERED: PANTOPRAZOLE SODIUM 40 MG VIAL IV ONE (12:21)
--- NOTE | 2017-05-06 12:22 | ER Document Report ---
ED Medical Screen (RME) - General Chief Complaint: Rectal Bleeding Stated Complaint: STOMACH PAIN Time Seen by Provider: 05/06/17 12:16 Notes: RME DISCLOSURE I have seen this patient as part of a Rapid Medical Evaluation and, if applicable, placed any initially appropriate orders. The patient will be seen and fully evaluated, including a full history and physical exam, by a provider ( in Main ED or Fast Track) when a room becomes available. 56-year-old female here with complaints of continued abdominal pain and worsening rectal bleeding ongoing for 2 days now. She had an outpatient CT abdomen pelvis performed yesterday then came here to the emergency department where her blood counts were normal. She was discharged home and told to come back if the symptoms have worsened and this is the reason she is back today. She states that the bleeding is characterized as bright red and she states that she has had so much bleeding that she was unable to keep track of the amount. "Whenever I sit down, the blood just pours out". She does not take any blood thinners. She has never had a GI bleed in the past. TRAVEL OUTSIDE OF THE [place] IN LAST 30 DAYS: No - Related Data Allergies/Adverse Reactions: levofloxacin [From Levaquin] Allergy (Verified 05/06/17 11:21) Past Medical History - Past Medical History Cardiac Medical History: Reports: Hx Hypertension Pulmonary Medical History: Reports: Hx Asthma, Hx Bronchitis Neurological Medical History: Reports: Hx Migraine Endocrine Medical History: Reports: Hx Diabetes Mellitus Type 2 Renal/ Medical History: Denies: Hx Peritoneal Dialysis GI Medical History: Reports: Hx Gastroesophageal Reflux Disease Past Surgical History: Reports: Hx Cardiac Surgery - Repair vsd, Hx Orthopedic Surgery - Left hand - Immunizations Hx Diphtheria, Pertussis, Tetanus Vaccination: Yes Physical Exam - Vital signs Vitals: Temp Pulse Resp BP Pulse Ox 97.8 F 84 18 119/79 94 05/06/17 11:23 05/06/17 11:23 05/06/17 11:23 05/06/17 11:23 03/27/18 11:23 Course - Vital Signs Vital signs: Temp Pulse Resp BP Pulse Ox 97.8 F 84 18 119/79 94 05/06/17 11:23 05/06/17 11:23 05/06/17 11:23 05/06/17 11:23 05/06/17 11:23
[2017-05-06 13:43] LABS: PARTIAL THROMBOPLASTIN TIME 24.5 SEC (23.5-35.8); PROTHROMBIN TIME 13.9 SEC (11.4-15.4)
[2017-05-06 13:56] LABS: ALANINE AMINOTRANSFERASE 42 U/L (9-52); ALBUMIN 3.5 g/dL (3.5-5.0); ALKALINE PHOSPHATASE 62 U/L (38-126); ANION GAP 5 (5-19); ASPARTATE AMINO TRANSFERASE 27 U/L (14-36); BILIRUBIN,DIRECT 0.4 mg/dL (0.0-0.4); BILIRUBIN,TOTAL 0.8 mg/dL (0.2-1.3); BLOOD UREA NITROGEN 15 mg/dL (7-20); CARBON DIOXIDE 29 mmol/L (22-30); CHLORIDE 103 mmol/L (98-107); GLUCOSE 75 mg/dL (75-110); LIPASE 28.3 U/L (23-300); POTASSIUM 3.9 mmol/L (3.6-5.0); SODIUM 137.2 mmol/L (137-145); TOTAL PROTEIN 5.9 g/dL (6.3-8.2)
--- NOTE | 2017-05-06 14:51 | ER Document Report ---
ED GI Bleed / Rectal Pain - General Chief Complaint: Rectal Bleeding Stated Complaint: STOMACH PAIN Time Seen by Provider: 05/06/17 12:16 Information source: Patient Notes: 56 years old female presents today with right lower quadrant abdominal painHPI- REVIEW OF SYSTEMS: CONSTITUTIONAL : Denies fever, chills, or sweats. Denies recent illness. EENT: Denies eye, ear, throat, or mouth pain or symptoms. Denies nasal or sinus congestion or discharge. Denies throat, tongue, or mouth swelling or difficulty swallowing. CARDIOVASCULAR: Denies chest pain. Denies palpitations or racing or irregular heart beat. Denies ankle edema. RESPIRATORY: Denies cough, cold, or chest congestion. Denies shortness of breath, difficulty breathing, or wheezing. GASTROINTESTINAL: Denies abdominal pain or distention. Denies nausea, vomiting , or diarrhea. Denies blood in vomitus, stools, or per rectum. Denies black, tarry stools. Denies constipation. GENITOURINARY: Denies difficulty urinating, painful urination, burning, frequency, blood in urine, or discharge. FEMALE GENITOURINARY: Denies vaginal bleeding, heavy or abnormal periods, irregular periods. Denies vaginal discharge or odor. MUSCULOSKELETAL: Denies back or neck pain or stiffness. Denies joint pain or swelling. SKIN: Denies rash, lesions or sores. HEMATOLOGIC : Denies easy bruising or bleeding. LYMPHATIC: Denies swollen, enlarged glands. NEUROLOGICAL: Denies confusion or altered mental status. Denies passing out or loss of consciousness. Denies dizziness or lightheadedness. Denies headache. Denies weakness or paralysis or loss of use of either side. Denies problems with gait or speech. Denies sensory loss, numbness, or tingling. Denies seizures. PSYCHIATRIC: Denies anxiety or stress. Denies depression, suicidal ideation, or homicidal ideation. ALL OTHER SYSTEMS REVIEWED AND NEGATIVE. PHYSICAL EXAMINATION: GENERAL: Well-appearing, well-nourished and in no acute distress. HEAD: Atraumatic, normocephalic. EYES: Pupils equal round and reactive to light, extraocular movements intact, conjunctiva are normal. ENT: Nares patent, oropharynx clear without exudates. Moist mucous membranes. NECK: Normal range of motion, supple without lymphadenopathy LUNGS: Breath sounds clear to auscultation bilaterally and equal. No wheezes rales or rhonchi. HEART: Regular rate and rhythm without murmurs ABDOMEN: Soft, nontender, nondistended abdomen. No guarding, no rebound. No masses appreciated. Female : deferred Musculoskeletal: Normal range of motion, no pitting or edema. No cyanosis. NEUROLOGICAL: Cranial nerves grossly intact. Normal speech, normal gait. Normal sensory, motor exams PSYCH: Normal mood, normal affect. SKIN: Warm, Dry, normal turgor, no rashes or lesions noted. Dictation was performed using [employer] voice recognition software TRAVEL OUTSIDE OF THE [place] IN LAST 30 DAYS: No - Related Data Allergies/Adverse Reactions: levofloxacin [From Levaquin] Allergy (Verified 05/06/17 11:21) Past Medical History - Social History Smoking Status: Never Smoker Chew tobacco use (# tins/day): No Frequency of alcohol use: None Drug Abuse: None Family History: Reviewed & Not Pertinent, Malignancy - Mom- breast Ca, Other - Brother-HTN/[place] Patient has suicidal ideation: No Patient has homicidal ideation: No - Past Medical History Cardiac Medical History: Reports: Hx Hypertension Pulmonary Medical History: Reports: Hx Asthma, Hx Bronchitis Neurological Medical History: Reports: Hx Migraine Endocrine Medical History: Reports: Hx Diabetes Mellitus Type 2 Renal/ Medical History: Denies: Hx Peritoneal Dialysis GI Medical History: Reports: Hx Gastroesophageal Reflux Disease Past Surgical History: Reports: Hx Cardiac Surgery - Repair vsd, Hx Orthopedic Surgery - Left hand - Immunizations Hx Diphtheria, Pertussis, Tetanus Vaccination: Yes Physical Exam - Vital signs Vitals: Temp Pulse Resp BP Pulse Ox 97.8 F 84 18 119/79 94 05/06/17 11:23 05/06/17 11:23 05/06/17 11:23 05/06/17 11:23 05/06/17 11:23 Course - Vital Signs Vital signs: Temp Pulse Resp BP Pulse Ox 97.8 F 84 17 134/79 H 99 05/06/17 11:23 05/06/17 11:23 05/06/17 14:33 05/06/17 14:33 05/06/17 14:33 - Laboratory Result Diagrams: 05/06/17 12:45 05/06/17 12:45 Laboratory results interpreted by me: 05/06/17 12:45 Total Protein 5.9 L Discharge - Discharge Referrals: DOMINGUEZ FOOTE MD [Primary Care Provider] - Follow up as needed
[2017-05-06 14:57] LABS: ABSOLUTE EOSINOPHILS # (AUTO) 0.1 10^3/uL (0.0-0.6); ABSOLUTE LYMPHOCYTES (AUTO) 2.4 10^3/uL (0.5-4.7); ABSOLUTE NEUT (AUTO) 7.5 10^3/uL (1.7-8.2); BASOPHILS % (AUTO) 0.3 % (0-2); HEMOGLOBIN 12.2 g/dL (12.0-15.5); LYMPHOCYTES % (AUTO) 21.6 % (13-45); MEAN CORPUSCULAR HEMOGLOBIN 29.7 pg (27.0-33.4); MEAN CORPUSCULAR VOLUME 88 fl (80-97); MONOCYTES % (AUTO) 8.8 % (3-13); PLATELET COUNT 160 10^3/uL (150-450); RED BLOOD COUNT 4.12 10^6/uL (3.72-5.28); RED CELL DISTRIBUTION WIDTH 14.6 % (11.5-14.0); SEGMENTED NEUTROPHILS % (AUTO) 68.3 % (42-78); TOTAL CELLS COUNTED % (AUTO) 100 %; WHITE BLOOD COUNT 10.9 10^3/uL (4.0-10.5)
[2017-05-06] MEDS ORDERED: MORPHINE SULFATE 10 MG/ML INJ IV ONE (16:52)
[2017-05-06 18:10] VITALS: BP 126/73
--- NOTE | 2017-05-06 18:26 | ER Document Report ---
ED General - General Mode of Arrival: Ambulatory Information source: Patient TRAVEL OUTSIDE OF THE [place] IN LAST 30 DAYS: No <YUNIER HOPE - Last Filed: 05/07/17 00:00> <GIOVANNI BONNER - Last Filed: 05/07/17 00:13> - General Chief Complaint: Rectal Bleeding Stated Complaint: STOMACH PAIN Time Seen by Provider: 05/06/17 12:16 Notes: Patient is a 56 year old female presenting to the emergency department complaining of multiple symptoms including abdominal pain, nausea, vomiting, and rectal bleeding onset yesterday. Patient states she noticed bright red blood in her stool that filled the toilet yesterday further stating she only notices the blood when she is having a bowel movement. Patient was seen at [facility] yesterday and was told she had thickening of the colon wall and has a follow up GI appointment tomorrow. Patient states she decided to come into the emergency department today due to the bleeding and abdominal pain persisting. She states she has had black stool but mentions taking Pepto Bismol to help alleviate her symptoms. (YUNIER HOPE) - Related Data Allergies/Adverse Reactions: levofloxacin [From Levaquin] Allergy (Verified 05/06/17 11:21) Past Medical History - General Information source: Patient - Social History Smoking Status: Never Smoker Chew tobacco use (# tins/day): No Frequency of alcohol use: None Drug Abuse: None Family History: Malignancy - Mom- breast Ca, Other - Brother-HTN/[place] Patient has suicidal ideation: No Patient has homicidal ideation: No - Past Medical History Cardiac Medical History: Reports: Hx Hypertension Pulmonary Medical History: Reports: Hx Asthma, Hx Bronchitis Neurological Medical History: Reports: Hx Migraine Endocrine Medical History: Reports: Hx Diabetes Mellitus Type 2 GI Medical History: Reports: Hx Gastroesophageal Reflux Disease Past Surgical History: Reports: Hx Cardiac Surgery - Repair vsd, Hx Orthopedic Surgery - Left hand - Immunizations Hx Diphtheria, Pertussis, Tetanus Vaccination: Yes <YUNIER HOPE - Last Filed: 05/07/17 00:00> Review of Systems - Review of Systems Constitutional: No symptoms reported EENT: No symptoms reported Cardiovascular: No symptoms reported Respiratory: No symptoms reported Gastrointestinal: See HPI, Abdominal pain, Diarrhea, Nausea, Vomiting, Black stools - Has also taken Pepto Bismol, Rectal bleeding Genitourinary: No symptoms reported Female Genitourinary: No symptoms reported Musculoskeletal: No symptoms reported Skin: No symptoms reported Hematologic/Lymphatic: No symptoms reported Neurological/Psychological: No symptoms reported -: Yes All other systems reviewed and negative <HERMINIAYUNIER ESCALERA - Last Filed: 05/07/17 00:00> Physical Exam <HERMINIAYUNIER - Last Filed: 05/07/17 00:00> <GIOVANNI BONNER - Last Filed: 05/07/17 00:13> - Vital signs Vitals: Temp Pulse Resp BP Pulse Ox 97.8 F 84 18 119/79 94 05/06/17 11:23 05/06/17 11:23 05/06/17 11:23 05/06/17 11:23 05/06/17 11:23 - Notes Notes: GENERAL: Alert, interacts well. No acute distress. HEAD: Normocephalic, atraumatic. EYES: Pupils equal, round, and reactive to light. Extraocular movements intact. ENT: Oral mucosa moist, tongue midline. NECK: Full range of motion. Supple. Trachea midline. LUNGS: Clear to auscultation bilaterally, no wheezes, rales, or rhonchi. No respiratory distress. HEART:1/6 Systolic murmur. Regular rate and rhythm. No gallops or rubs. ABDOMEN: Soft, LLQ and RLQ tenderness to palpation, small amount of guarding, no rigidity or rebound. Non-distended. Bowel sounds present in all 4 quadrants. EXTREMITIES: Moves all 4 extremities spontaneously. No edema, radial and dorsalis pedis pulses 2/4 bilaterally. No cyanosis. NEUROLOGICAL: Alert and oriented x3. Normal speech. PSYCH: Normal affect, normal mood. SKIN: Warm, dry, normal turgor. No rashes or lesions noted. RECTAL per Dr. Enriquez: Melena, bright red blood. No active bleeding or hemorrhoids. (YUNIER HOPE) Course - Laboratory Result Diagrams: 05/06/17 14:42 05/06/17 12:45 <YUNIER HOPE - Last Filed: 05/07/17 00:00> - Laboratory Result Diagrams: 05/06/17 14:42 05/06/17 12:45 <GIOVANNI BONNER - Last Filed: 05/07/17 00:13> - Re-evaluation Re-evalutation: 05/06/17 18:33 CBC shows slight leukocytosis 10.9, hemoglobin is normal at 12.2, otherwise unremarkable, coags normal, chemistries unremarkable, Hemoccult is positive, CAT scan report was obtained from [facility] and it revealed a 5.0 x 5.8 cm right cecal/ascending colon mass versus area of marked colon wall thickening mild adjacent jennifer-colonic inflammation trace free fluid no adenopathy, neoplasm is the diagnosis of exclusion. This CAT scan was performed yesterday on 05/05/2017. Patient has had one more bloody bowel movement here and then has had a nonbloody bowel movement since then. Has never been hypotensive or tachycardic , no evidence of life-threatening bleeding at this time. Patient has a follow- up appointment with Dr. Schuster a GI doctor tomorrow. I did discuss the case with Dr. 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 Patient will return should her bleeding increase, should she develop dizziness or weakness or any new or concerning symptoms. Patient is agreeable to following up as an outpatient tomorrow. She is aware that there is the possibility of cancer (GIOVANNI BONNER) - Vital Signs Vital signs: Temp Pulse Resp BP Pulse Ox 97.7 F 84 15 126/73 H 97 05/06/17 18:01 05/06/17 11:23 05/06/17 18:01 05/06/17 18:01 05/06/17 18:01 - Laboratory Laboratory results interpreted by me: 05/06/17 05/06/17 12:45 14:42 WBC 10.9 H RDW 14.6 H Total Protein 5.9 L Discharge <YUNIER HOPE - Last Filed: 05/07/17 00:00> <GIOVANNI BONNER - Last Filed: 05/07/17 00:13> - Discharge Clinical Impression: Lower GI bleed, Colonic mass Condition: Stable Disposition: HOME, SELF-CARE Additional Instructions: Your CAT scan from yesterday showed "marked wall thickening of the cecum/ ascending colon versus a circumferential mass. Neoplasm is the diagnosis of exclusion" Today your hemoglobin was 12.2. You do not need a blood transfusion at this time. If your bleeding worsens, if you develop dizziness or lightheadedness or any new or concerning symptoms please return to the emergency department. Please do not eat after midnight until you have talked to the GI doctors office tomorrow morning at 730 when you call them. Please keep your follow-up appointment with them. Referrals: DOMINGUEZ FOOTE MD [Primary Care Provider] - Follow up as needed Scribe Attestation: 05/07/17 00:13 I personally performed the services described in the documentation, reviewed and edited the documentation which was dictated to the scribe in my presence, and it accurately records my words and actions. (GIOVANNI BONNER) Scribe Documentation - Scribe Written by Manjeet:: Manjeet Armstrong, 05/06/2017 19:46 acting as scribe for :: Thiago <YUNIER HOPE - Last Filed: 05/07/17 00:00>
[2017-05-06] MEDS ORDERED: HYDROCODONE/ACETAMINOPHEN 5-325 MG (6 TAB/ER DISP) PO PRN (18:36)
== END 2017-05-06 19:04 | disposition home or self-care (01) ==
LOC: ER 11:17
DX: K92.2 Gastrointestinal hemorrhage, unspecified (principal); K63.9 Disease of intestine, unspecified; R10.9 Unspecified abdominal pain; R11.2 Nausea with vomiting, unspecified; R19.7 Diarrhea, unspecified; R10.813 Right lower quadrant abdominal tenderness; R10.814 Left lower quadrant abdominal tenderness; I10 Essential (primary) hypertension; E11.9 Type 2 diabetes mellitus without complications; J45.909 Unspecified asthma, uncomplicated; Z88.1 Allergy status to other antibiotic agents; D72.829 Elevated white blood cell count, unspecified
CPT/HCPCS: 99283; 96375; 96365; 86900; 86901; 36415; 86850; 83690; 85025; 85610; 85730; 82272; 80053; J2270; S0164; J7030

== ENCOUNTER 2017-10-03 18:44 | Emergency (ER) | payer OTHER ==
[2017-10-03] MEDS ORDERED: DIPHENHYDRAMINE HCL 50 MG/ML VIAL IV ONE ×2 (20:04→21:40)
[2017-10-03] MEDS ORDERED: METOCLOPRAMIDE HCL INJ/PF 10 MG/2 ML SDV IV ONE (20:04)
[2017-10-03] MEDS ORDERED: KETOROLAC TROMETHAMINE INJ/PF 30 MG/1 ML SDV IV ONE (20:04)
[2017-10-03] MEDS ORDERED: MAGNESIUM SULFATE/D5W 1 GM/100 ML RTUPB IV ONE (20:04)
--- NOTE | 2017-10-03 20:09 | ER Document Report ---
ED Medical Screen (RME) - General Chief Complaint: Headache Stated Complaint: HEADACHE Time Seen by Provider: 10/03/17 20:02 TRAVEL OUTSIDE OF THE [place] IN LAST 30 DAYS: No - HPI Patient complains to provider of: headache Onset: Other - 49-year-old female who presents with a headache which is lasted over the last 5 days, she has a history of migraines in the past and is receiving treatment for that, she has been taking her normal medications for this without any improvement in her symptoms she is very frustrated because she has got a throbbing quality headache which starts just behind the eyes in the front of the head and extends over the back of the head to the base of the neck. She denies any fevers chills rashes chest pain shortness of breath diarrhea constipation focal numbness or weakness, she does endorse photophobia and nausea. - Related Data Allergies/Adverse Reactions: levofloxacin [From Levaquin] Allergy (Verified 05/06/17 11:21) Home Medications: protonix, metoprolol, amytriptoline Past Medical History - General Information source: Patient - Social History Chew tobacco use (# tins/day): No Frequency of alcohol use: None Drug Abuse: None - Past Medical History Cardiac Medical History: Reports: Hx Hypertension Pulmonary Medical History: Reports: Hx Asthma, Hx Bronchitis Neurological Medical History: Reports: Hx Migraine Endocrine Medical History: Reports: Hx Diabetes Mellitus Type 2 Renal/ Medical History: Denies: Hx Peritoneal Dialysis GI Medical History: Reports: Hx Gastroesophageal Reflux Disease Past Surgical History: Reports: Hx Cardiac Surgery - Repair vsd, Hx Orthopedic Surgery - Left hand - Immunizations Hx Diphtheria, Pertussis, Tetanus Vaccination: Yes Physical Exam - Vital signs Vitals: Temp Pulse Resp BP Pulse Ox 98.3 F 90 16 132/78 H 96 10/03/17 19:05 10/03/17 19:05 10/03/17 19:05 10/03/17 19:05 10/03/17 19:05 Course - Re-evaluation Re-evalutation: 10/03/17 20:07 49-year-old female presents for evaluation of a headache which has been refractory to her standard home remedies. She is a history of migraines on multiple medications for therapy though has not been able to achieve any relief utilizing these. She is overall neurologically intact, will attempt to treat her migrainous symptoms. We will defer further diagnostics including imaging to secondary provider at this time. - Vital Signs Vital signs: Temp Pulse Resp BP Pulse Ox 98.3 F 90 16 132/78 H 96 10/03/17 19:05 10/03/17 19:05 10/03/17 19:05 10/03/17 19:05 10/03/17 19:05 Doctor's Discharge - Discharge Referrals: DOMINGUEZ FOOTE MD [Primary Care Provider] - Follow up as needed
[2017-10-03] MEDS ORDERED: MORPHINE SULFATE 10 MG/ML INJ IV ONE ×2 (21:40→23:07)
--- NOTE | 2017-10-03 23:10 | ER Document Report ---
ED General - General Chief Complaint: Headache Stated Complaint: HEADACHE Time Seen by Provider: 10/03/17 20:02 Mode of Arrival: Ambulatory Information source: Patient Notes: This is a pleasant 57-year-old female with a history of migraines presents to the emergency room with a migraine for the past 5 days. She has tried several things which have not worked. She denies any fever, neck stiffness, photophobia. She does report some nausea. She denies chest pain, shortness of breath, abdominal pain. She denies any blood per rectum. She denies any recent illnesses. She states that it came on slowly 5 days ago. She denies any exacerbating or relieving factors. She states it is very consistent with previous migraines it is just lasting longer. This is not the worst headache of her life. She denies any thunderclap type of presentation. Denies any memory loss TRAVEL OUTSIDE OF THE [place] IN LAST 30 DAYS: No - HPI Onset: Last week Onset/Duration: Gradual Quality of pain: Dull Severity: Moderate Pain Level: 2 Associated symptoms: denies: Chest pain, Fever, Shortness of breath Exacerbated by: Denies Relieved by: Denies Similar symptoms previously: Yes Recently seen / treated by doctor: No - Related Data Allergies/Adverse Reactions: levofloxacin [From Levaquin] Allergy (Verified 05/06/17 11:21) Home Medications: protonix, metoprolol, amytriptoline Past Medical History - General Information source: Patient - Social History Smoking Status: Never Smoker Cigarette use (# per day): No Chew tobacco use (# tins/day): No Frequency of alcohol use: None Drug Abuse: None Lives with: Family Family History: Malignancy - Mom- breast Ca, Other - Brother-HTN/[place] Patient has suicidal ideation: No Patient has homicidal ideation: No - Past Medical History Cardiac Medical History: Reports: Hx Hypertension Pulmonary Medical History: Reports: Hx Asthma, Hx Bronchitis Neurological Medical History: Reports: Hx Migraine Endocrine Medical History: Reports: Hx Diabetes Mellitus Type 2 Renal/ Medical History: Denies: Hx Peritoneal Dialysis GI Medical History: Reports: Hx Gastroesophageal Reflux Disease Past Surgical History: Reports: Hx Abdominal Surgery, Hx Cardiac Surgery - Repair vsd, Hx Orthopedic Surgery - Left hand - Immunizations Hx Diphtheria, Pertussis, Tetanus Vaccination: Yes Review of Systems - Review of Systems Constitutional: denies: Chills, Fever EENT: No symptoms reported Cardiovascular: denies: Chest pain, Palpitations, Heart racing Respiratory: denies: Cough, Hemoptysis, Short of breath Gastrointestinal: Nausea. denies: Abdomen distended, Vomiting Genitourinary: No symptoms reported Female Genitourinary: No symptoms reported Musculoskeletal: No symptoms reported Skin: No symptoms reported Hematologic/Lymphatic: No symptoms reported Neurological/Psychological: Headaches. denies: Paralysis, Seizure, Lost consciousness, Speech impairment, Numbness Physical Exam - Vital signs Vitals: Temp Pulse Resp BP Pulse Ox 98.3 F 90 16 132/78 H 96 10/03/17 19:05 10/03/17 19:05 10/03/17 19:05 10/03/17 19:05 10/03/17 19:05 Notes: Physical exam: GENERAL: The 57-year-old female, alert and oriented 3, planning of headache. HEAD: Atraumatic, normocephalic. EYES: Pupils equal round and reactive to light, extraocular movements intact, sclera anicteric, conjunctiva are normal. ENT: Dry mucous membranes. NECK: Normal range of motion, supple without obvious mass or JVD. LUNGS: Breath sounds clear to auscultation bilaterally and equal. No wheezes rales or rhonchi. HEART: Regular rate and rhythm without murmurs, rubs or gallops. ABDOMEN: Soft, normoactive bowel sounds. No tenderness to palpation. No guarding, no rebound. No masses appreciated. EXTREMITIES: Normal range of motion, no pitting or edema. No clubbing or cyanosis. NEUROLOGICAL: Patient's neck is supple. She does not have any photophobia. Cranial nerves II through XII grossly intact. Motor 5/5, sensory really appears intact, normal speech, moving all extremities. PSYCH: Normal mood, normal affect. SKIN: Warm, Dry, normal turgor, no rashes or lesions noted. Course - Re-evaluation Re-evalutation: 10/03/17 23:21 Patient was treated with IV Reglan, IV Benadryl, IV Toradol, IV magnesium and IV morphine. She is much improved. She is alert and oriented 3. She states she feels close to her baseline. I will give her a short course of some pain medicine and she will follow-up with her doctor. - Vital Signs Vital signs: Temp Pulse Resp BP Pulse Ox 98.3 F 90 16 109/72 96 10/03/17 19:05 10/03/17 19:05 10/03/17 23:01 10/03/17 23:01 10/03/17 23:01 Discharge - Discharge Clinical Impression: Migraine headache Condition: Stable Disposition: HOME, SELF-CARE Instructions: Antinausea Medication ([facility]), Headache ([facility]), Oral Narcotic Medication ([facility]) Additional Instructions: Recommendations: Rest, drink plenty of fluids, take the pain medicine as prescribed. Take the nausea medicine as needed. Like you to follow-up with your primary card doctor in the next 3-5 days. In the meantime, return to the emergency room for worsening headache, fever ( temperature greater than 100.4) or any concerns or getting worse. The pain medicine you're taking prescribed as a narcotic. There are several important things you should know about this medicine: 1. Taking narcotics for too long can lead to physical and mental dependence. Take this medicine only if really needed and in the lowest quantity to achieve pain relief. 2. Do not drink alcohol while on this medicine. Alcohol interacts with narcotics and the combination can be dangerous. 3. Do not drive or operate machinery while on this medicine. 4. Narcotics do cause constipation, so drink plenty of fluids and daily stool softeners. Prescriptions: Morphine Sulfate [Morphine Ir 15 Mg Tablet] 15 mg PO Q6HP PRN #25 tablet PRN Reason: Promethazine HCl [Phenergan 25 mg Tablet] 25 mg PO Q6H PRN #15 tablet PRN Reason: Referrals: DOMINGUEZ FOOTE MD [Primary Care Provider] - Follow up in 3-5 days
[2017-10-03 23:51] VITALS: BP 124/106
== END 2017-10-03 23:51 | disposition home or self-care (01) ==
LOC: ER 18:44
DX: G43.909 Migraine, unspecified, not intractable, without status migrainosus (principal); R11.0 Nausea; I10 Essential (primary) hypertension; J45.909 Unspecified asthma, uncomplicated; E11.9 Type 2 diabetes mellitus without complications; K21.9 Gastro-esophageal reflux disease without esophagitis; Z79.899 Other long term (current) drug therapy; Z88.1 Allergy status to other antibiotic agents
CPT/HCPCS: 96376; 99284; 96375; 96365; J1200; J1885; J2765; J2270; J3475

== ENCOUNTER 2017-10-11 09:21 | Emergency (ER) | payer OTHER ==
[2017-10-11 09:32] VITALS: BP 143/77
[2017-10-11] MEDS ORDERED: KETOROLAC TROMETHAMINE 60 MG/2 ML SDV IM ONE (09:42)
[2017-10-11] MEDS ORDERED: CLINDAMYCIN HCL 150 MG CAPSULE PO ONE (09:44)
--- NOTE | 2017-10-11 09:47 | ER Document Report ---
ED Skin Rash/Insect Bite/Abscs - General Chief Complaint: Skin Problem Stated Complaint: ARM RASH Time Seen by Provider: 10/11/17 09:41 Mode of Arrival: Ambulatory Information source: Patient Notes: 57-year-old female presents to ED for complaint of redness swelling pain warmth and hard spot to the right upper arm just above the elbow. She states she had a IV there Friday. She states on Friday the muscle started to hurt on Friday it became hot and hard on redness developed around the hard area and then it is progressed since then. She states she has had a sinusitis since Friday she got started on amoxicillin. She was seen last Friday for headache and was given multiple medications through the IV. She is alert oriented respirations regular and unlabored speaking in full sentences walks with a even steady gait. No abscess noted. TRAVEL OUTSIDE OF THE [place] IN LAST 30 DAYS: No - HPI Patient complains to provider of: Other - Cellulitis to the right upper arm Onset: Other - Progressed since Friday Onset/Duration: Gradual, Worse Quality of pain: Pressure, Sharp Severity: Moderate Pain Level: 4 Skin Character: Erythema, Tenderness, Warm Skin Temperature: Warm Quality of rash: Painful Identify cause: Yes Exacerbated by: Movement Relieved by: Denies Similar symptoms previously: No Recently seen / treated by doctor: Yes - Related Data Allergies/Adverse Reactions: levofloxacin [From Levaquin] Allergy (Verified 10/11/17 09:32) Past Medical History - General Information source: Patient - Social History Smoking Status: Never Smoker Cigarette use (# per day): No Chew tobacco use (# tins/day): No Smoking Education Provided: No Frequency of alcohol use: None Drug Abuse: None Lives with: Family Family History: Malignancy - Mom- breast Ca, Other - Brother-HTN/[place] Patient has suicidal ideation: No Patient has homicidal ideation: No - Past Medical History Cardiac Medical History: Reports: Hx Hypertension Pulmonary Medical History: Reports: Hx Asthma, Hx Bronchitis EENT Medical History: Reports: None Neurological Medical History: Reports: Hx Migraine Endocrine Medical History: Reports: Hx Diabetes Mellitus Type 2 Renal/ Medical History: Reports: None Malignancy Medical History: Reports: None GI Medical History: Reports: Hx Gastroesophageal Reflux Disease Musculoskeletal Medical History: Reports None Skin Medical History: Reports None Psychiatric Medical History: Reports: None Traumatic Medical History: Reports: None Infectious Medical History: Reports: None Past Surgical History: Reports: Hx Abdominal Surgery, Hx Cardiac Surgery - Repair vsd, Hx Orthopedic Surgery - Left hand - Immunizations Hx Diphtheria, Pertussis, Tetanus Vaccination: Yes Review of Systems - Review of Systems Constitutional: No symptoms reported EENT: No symptoms reported Cardiovascular: No symptoms reported Respiratory: No symptoms reported Gastrointestinal: No symptoms reported Genitourinary: No symptoms reported Female Genitourinary: No symptoms reported Musculoskeletal: No symptoms reported Skin: Other - Red warm firm area to the right upper arm just above the elbow Hematologic/Lymphatic: No symptoms reported Neurological/Psychological: No symptoms reported -: Yes All other systems reviewed and negative Physical Exam - Vital signs Vitals: Temp Pulse Resp BP Pulse Ox 98.0 F 96 16 143/77 H 96 10/11/17 09:31 10/11/17 09:31 10/11/17 09:31 10/11/17 09:31 10/11/17 09:31 Interpretation: Normal - General General appearance: Appears well, Alert - HEENT Head: Normocephalic, Atraumatic Eyes: Normal Pupils: PERRL - Respiratory Respiratory status: No respiratory distress Chest status: Nontender Breath sounds: Normal Chest palpation: Normal - Cardiovascular Rhythm: Regular Heart sounds: Normal auscultation Murmur: No - Abdominal Inspection: Normal Distension: No distension Bowel sounds: Normal Tenderness: Nontender Organomegaly: No organomegaly - Back Back: Normal, Nontender - Extremities General upper extremity: Normal inspection, Nontender, Normal color, Normal ROM , Normal temperature General lower extremity: Normal inspection, Nontender, Normal color, Normal ROM , Normal temperature, Normal weight bearing. No: Jasmina's sign - Neurological Neuro grossly intact: Yes Cognition: Normal Orientation: AAOx4 Tavo Coma Scale Eye Opening: Spontaneous Tavo Coma Scale Verbal: Oriented Tavo Coma Scale Motor: Obeys Commands [place] Coma Scale Total: 15 Speech: Normal Motor strength normal: LUE, RUE, LLE, RLE Sensory: Normal - Psychological Associated symptoms: Normal affect, Normal mood - Skin Skin Temperature: Warm Skin Moisture: Dry Skin Color: Normal Location of irregularity: Extremities - Right upper arm Character of irregularity: Erythematous Irregularity with: Swelling, Tenderness, Warmth Course - Re-evaluation Re-evalutation: 10/11/17 09:55 Treated with Toradol and clindamycin for her cellulitis to the right upper arm. There is no abscess at this time. Patient has been instructed to return to the ED for any increase in symptoms or increase in redness. Patient then discharged home with a prescription for clindamycin. Patient instructed to take all of her medications. Patient to follow-up with her primary doctor. - Vital Signs Vital signs: Temp Pulse Resp BP Pulse Ox 98.0 F 96 16 143/77 H 96 10/11/17 09:31 10/11/17 09:31 10/11/17 09:31 10/11/17 09:31 10/11/17 09:31 Discharge - Discharge Clinical Impression: Cellulitis of right arm Condition: Stable Disposition: HOME, SELF-CARE Additional Instructions: CELLULITIS: You have an infection of your skin and underlying soft tissues called cellulitis. This is due to bacteria, which can enter through any break in the skin, or even through an irritated hair follicle. Untreated, cellulitis will usually worsen. Antibiotics are required. Usually, warm packs or warm soaks, and elevation of the infected area are recommended. You should start getting better within 24 to 36 hours. Most infections respond quickly to the right medication. Follow-up care is important, however, to check for abscess (boil) formation, unsuspected foreign body, or resistant infection. If you develop fever, chills, or if the area of infection is becoming rapidly more swollen or painful, call the doctor at once. CLINDAMYCIN: You have been given a prescription for the antibiotic clindamycin. It is often prescribed for infections in the mouth, such as dental infections or abscesses, and for skin infections due to MRSA. It's important that you take all the medication, unless instructed otherwise by your physician. Failure to complete the entire course can result in relapse of your condition. Common side effects of antibiotics include nausea, intestinal cramping, or diarrhea. Women may develop vaginal yeast infections, and babies can get yeast (thrush) in the mouth following the use of antibiotics. Contact your physician if you develop significant side effects from this medication. Allergy to this antibiotic can result in hives, wheezing, faintness, or itching. If symptoms of allergy occur, stop the medication and call the doctor. Toradol Injection You have been given an injection of ketorolac tromethamine (Toradol). This is an excellent, safe drug for pain control. It also has potent antiinflammatory action. You should have significant pain relief within about one hour. Toradol is not addicting and is non-sedating. It does not interfere with driving or work. Call or return if you develop itching, hives, shortness of breath, or rash. FOLLOW-UP CARE: If you have been referred to a physician for follow-up care, call the physician s office for an appointment as you were instructed or within the next two days. If you experience worsening or a significant change in your symptoms, notify the physician immediately or return to the Emergency Department at any time for re-evaluation. Prescriptions: Clindamycin HCl 300 mg PO Q6 #28 capsule Forms: Elevated Blood Pressure Referrals: DOMINGUEZ FOOTE MD [Primary Care Provider] - Follow up as needed
== END 2017-10-11 10:03 | disposition home or self-care (01) ==
LOC: ER 09:21
DX: L03.113 Cellulitis of right upper limb (principal); R21 Rash and other nonspecific skin eruption; M79.89 Other specified soft tissue disorders; I10 Essential (primary) hypertension; J45.909 Unspecified asthma, uncomplicated; E11.9 Type 2 diabetes mellitus without complications
CPT/HCPCS: 99283; 96372; J1885

== ENCOUNTER 2017-11-12 19:48 | Emergency (ER) | payer OTHER ==
--- NOTE | 2017-11-12 20:11 | ER Document Report ---
ED Medical Screen (RME) - General Chief Complaint: Breathing Difficulty Stated Complaint: KNEE PAIN Time Seen by Provider: 11/12/17 20:09 Notes: 57 years old female presents today with bilateral lower leg swelling shortness of breath on and off on exertion, right calf pain swelling for the last few days. Right calf medial side tenderness were noted. Bilateral ankle swelling with edema. TRAVEL OUTSIDE OF THE [place] IN LAST 30 DAYS: No - Related Data Allergies/Adverse Reactions: levofloxacin [From Levaquin] Allergy (Verified 10/11/17 09:32) Past Medical History - Social History Chew tobacco use (# tins/day): No Drug Abuse: None - Past Medical History Cardiac Medical History: Reports: Hx Hypertension Pulmonary Medical History: Reports: Hx Asthma, Hx Bronchitis Neurological Medical History: Reports: Hx Migraine Endocrine Medical History: Reports: Hx Diabetes Mellitus Type 2 Renal/ Medical History: Denies: Hx Peritoneal Dialysis GI Medical History: Reports: Hx Gastroesophageal Reflux Disease Past Surgical History: Reports: Hx Abdominal Surgery, Hx Cardiac Surgery - Repair vsd, Hx Orthopedic Surgery - Left hand, R carpal tunnel - Immunizations Hx Diphtheria, Pertussis, Tetanus Vaccination: Yes Physical Exam - Vital signs Vitals: Temp Pulse Resp BP Pulse Ox 98.6 F 88 18 150/77 H 94 11/12/17 19:53 11/12/17 19:53 11/12/17 19:53 11/12/17 19:53 11/12/17 19:53 Course - Vital Signs Vital signs: Temp Pulse Resp BP Pulse Ox 98.6 F 88 18 150/77 H 94 11/12/17 19:53 11/12/17 19:53 11/12/17 19:53 11/12/17 19:53 11/12/17 19:53 Doctor's Discharge - Discharge Referrals: DOMINGUEZ FOOTE MD [Primary Care Provider] - Follow up as needed
[2017-11-12 20:47] LABS: ABSOLUTE EOSINOPHILS # (AUTO) 0.2 10^3/uL (0.0-0.6); ABSOLUTE LYMPHOCYTES (AUTO) 2.8 10^3/uL (0.5-4.7); ABSOLUTE MONOCYTES (AUTO) 0.7 10^3/uL (0.1-1.4); ABSOLUTE NEUT (AUTO) 2.9 10^3/uL (1.7-8.2); BASOPHILS % (AUTO) 0.6 % (0-2); EOSINOPHILS % (AUTO) 3.7 % (0-6); HEMATOCRIT 37.9 % (36.0-47.0); HEMOGLOBIN 13.2 g/dL (12.0-15.5); LYMPHOCYTES % (AUTO) 41.2 % (13-45); MEAN CORPUSCULAR HEMOGLOBIN 29.1 pg (27.0-33.4); MEAN CORPUSCULAR HGB CONC 34.8 g/dL (32.0-36.0); MEAN CORPUSCULAR VOLUME 84 fl (80-97); MONOCYTES % (AUTO) 10.4 % (3-13); PLATELET COUNT 211 10^3/uL (150-450); RED BLOOD COUNT 4.53 10^6/uL (3.72-5.28); RED CELL DISTRIBUTION WIDTH 15.5 % (11.5-14.0); SEGMENTED NEUTROPHILS % (AUTO) 44.1 % (42-78); TOTAL CELLS COUNTED % (AUTO) 100 %; WHITE BLOOD COUNT 6.7 10^3/uL (4.0-10.5)
[2017-11-12 21:03] LABS: ALANINE AMINOTRANSFERASE 26 U/L (9-52); ALBUMIN 4.1 g/dL (3.5-5.0); ALKALINE PHOSPHATASE 82 U/L (38-126); ANION GAP 11 (5-19); ASPARTATE AMINO TRANSFERASE 22 U/L (14-36); BILIRUBIN,DIRECT 0.4 mg/dL (0.0-0.4); BILIRUBIN,TOTAL 0.5 mg/dL (0.2-1.3); BLOOD UREA NITROGEN 15 mg/dL (7-20); CALCIUM 9.4 mg/dL (8.4-10.2); CARBON DIOXIDE 24 mmol/L (22-30); CHLORIDE 100 mmol/L (98-107); GLUCOSE 159 mg/dL (75-110); POTASSIUM 3.5 mmol/L (3.6-5.0); SODIUM 135.3 mmol/L (137-145); TOTAL PROTEIN 6.6 g/dL (6.3-8.2)
[2017-11-12 21:04] LABS: INTERNATIONAL RATION (INR) 0.92; PROTHROMBIN TIME 12.8 SEC (11.4-15.4)
[2017-11-12] MEDS ORDERED: LIDOCAINE 1% INJ-PF (10 MG/ML) 30 ML SDV NEB ONE (21:55)
[2017-11-12] MEDS ORDERED: BENZONATATE 100 MG CAPSULE PO ONE (21:56)
[2017-11-12 22:23] LABS: APPEARANCE,URINE CLEAR; BILIRUBIN,URINE NEGATIVE (NEGATIVE); COLOR,URINE YELLOW; GLUCOSE, URINE NEGATIVE (NEGATIVE); KETONES,URINE NEGATIVE (NEGATIVE); LEUKOCYTE ESTERASE,URINE NEGATIVE (NEGATIVE); NITRITE,URINE NEGATIVE (NEGATIVE); PROTEIN,URINE NEGATIVE (NEGATIVE); URINE SPECIFIC GRAVITY 1.011; UROBILINOGEN,URINE NEGATIVE mg/dL (<2.0)
--- NOTE | 2017-11-12 22:42 | RADIOLOGY REPORT (SQ) ---
Chest 2 view on 11/12/2017 at 10:49 PM CLINICAL INDICATION: Shortness of breath COMPARISON: 01/14/2017 FINDINGS: The lungs are clear. Cardiac, hilar and mediastinal contours are within normal limits. Pulmonary vascularity is within normal limits. No bony abnormality is noted. IMPRESSION: No active disease.
[2017-11-12] MEDS ORDERED: FUROSEMIDE 20 MG TABLET PO ONE (22:48)
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
[2017-11-12 23:09] VITALS: BP 131/67
--- NOTE | 2017-11-12 23:16 | RADIOLOGY REPORT (SQ) ---
EXAM DESCRIPTION: US EXTREMITY VEINS UNILATERAL COMPLETED DATE/TME: 11/12/2017 8:37 PM CLINICAL HISTORY: calf swelling/pain/rule out DVT COMPARISON: None Available TECHNIQUE: Duplex images of the common femoral vein, superficial femoral vein, popliteal, and posterior tibial veins of the right lower extremity were submitted FINDINGS: All of the above-mentioned venous structures demonstrate normal spontaneous flow with respiratory phasicity and were fully compressible. IMPRESSION: No sonographic evidence of acute DVT within the right lower extremity.
== END 2017-11-12 23:12 | disposition home or self-care (01) ==
LOC: ER 19:48
DX: M79.89 Other specified soft tissue disorders (principal); J06.9 Acute upper respiratory infection, unspecified; B97.89 Other viral agents as the cause of diseases classified elsewhere; R05 Cough; J45.909 Unspecified asthma, uncomplicated; R06.02 Shortness of breath; I10 Essential (primary) hypertension; E11.9 Type 2 diabetes mellitus without complications; Z88.1 Allergy status to other antibiotic agents; Z87.891 Personal history of nicotine dependence; Z87.01 Personal history of pneumonia (recurrent); Z79.899 Other long term (current) drug therapy
CPT/HCPCS: 94640; 99285; 36415; 85025; 85610; 80053; 81001; 83880; 93971; 71046; J3490

== ENCOUNTER → 2018-03-09 | Outpatient (CLI) | payer OTHER ==
--- NOTE | 2018-03-09 15:25 | RADIOLOGY REPORT (SQ) ---
EXAM DESCRIPTION: BARIUM SWALLOW ESOPHAGUS COMPLETED DATE/TIME: 03/09/2018 9:39 am REASON FOR STUDY: DYSPHAGIA R13.10 DYSPHAGIA, UNSPECIFIED COMPARISON: None. TECHNIQUE: Under fluoroscopic guidance, patient ingested effervescent granules followed by thick and thin barium. Fluoroscopic spot images and routine radiographic images acquired and stored on PACS. 12 MM BARIUM TABLET GIVEN: The patient swallowed a 12 mm barium tablet which passed easily through th e esophagus into the stomach without delay. LIMITATIONS: None. FLUOROSCOPY TIME: FLUORO TIME: 1.34 minutes 7 images saved to PACS. FINDINGS: NEUROMUSCULAR COORDINATION OF SWALLOW: Normal. No aspiration. ESOPHAGEAL MOTILITY: Normal peristalsis. No esophageal spasm. ESOPHAGEAL MUCOSA: Normal mucosa without masses or ulceration. GASTRO-ESOPHAGEAL JUNCTION: Small sliding-type hiatal hernia present. Significant gastroesophageal r eflux demonstrated with barium refluxing to the lower cervical level. NON-GI TRACT STRUCTURES: No significant finding. OTHER: No other significant finding. IMPRESSION: SMALL SLIDING-TYPE HIATAL HERNIA WITH SIGNIFICANT GASTROESOPHAGEAL REFLUX. OTHERWISE UN REMARKABLE STUDY. . RECOMMENDATION: None COMMENT: None Quality ID [id number]: Final reports for procedures using fluoroscopy that document radiation exposure reny day, or exposure time and number of fluorographic images (if radiation exposure indices are not avail able) TECHNICAL DOCUMENTATION: JOB ID: [id number] [employer]- All Rights Reserved Reading location - IP/workstation name: [email or web address]
== END ==
LOC: RAD 07:53
PROVIDERS: ATTEND Otolaryngology
DX: R13.10 Dysphagia, unspecified (principal)
CPT/HCPCS: 74220

== ENCOUNTER 2018-05-03 14:27 | Emergency (ER) | payer OTHER ==
[2018-05-03] MEDS ORDERED: LIDOCAINE 1% INJ-PF (10 MG/ML) 30 ML SDV NEB ONE (15:52)
[2018-05-03] MEDS ORDERED: IPRATROPIUM/ALBUTEROL 0.5-2.5 MG/3 ML AMPUL NEB ONE (15:52)
[2018-05-03] MEDS ORDERED: PREDNISONE 20 MG TABLET PO ONE (15:53)
[2018-05-03] MEDS ORDERED: BENZONATATE 100 MG CAPSULE PO ONE (15:54)
--- NOTE | 2018-05-03 16:14 | RADIOLOGY REPORT (SQ) ---
EXAM DESCRIPTION: CHEST SINGLE VIEW COMPLETED DATE/TIME: 05/03/2018 4:06 pm REASON FOR STUDY: Short of breath, productive cough COMPARISON: 11/12/2017. NUMBER OF VIEWS: One view. TECHNIQUE: Single frontal radiographic view of the chest acquired. LIMITATIONS: None. FINDINGS: LUNGS AND PLEURA: No opacities, masses or pneumothorax. No pleural effusion. MEDIASTINUM AND HILAR STRUCTURES: No masses. Contour normal. HEART AND VASCULAR STRUCTURES: Heart normal in size. Normal vasculature. BONES: No acute findings. HARDWARE: None in the chest. OTHER: No other significant finding. IMPRESSION: NO SIGNIFICANT RADIOGRAPHIC FINDING IN THE CHEST. TECHNICAL DOCUMENTATION: JOB ID: [id number] [employer]- All Rights Reserved Reading location - IP/workstation name: [email or web address]
[2018-05-03 16:16] LABS: ABSOLUTE EOSINOPHILS # (AUTO) 0.5 10^3/uL (0.0-0.6); ABSOLUTE LYMPHOCYTES (AUTO) 1.9 10^3/uL (0.5-4.7); ABSOLUTE MONOCYTES (AUTO) 0.8 10^3/uL (0.1-1.4); ABSOLUTE NEUT (AUTO) 3.2 10^3/uL (1.7-8.2); BASOPHILS % (AUTO) 0.6 % (0-2); EOSINOPHILS % (AUTO) 8.3 % (0-6); HEMATOCRIT 38.3 % (36.0-47.0); HEMOGLOBIN 13.1 g/dL (12.0-15.5); LYMPHOCYTES % (AUTO) 29.6 % (13-45); MEAN CORPUSCULAR HEMOGLOBIN 29.3 pg (27.0-33.4); MEAN CORPUSCULAR HGB CONC 34.1 g/dL (32.0-36.0); MEAN CORPUSCULAR VOLUME 86 fl (80-97); MONOCYTES % (AUTO) 12.3 % (3-13); PLATELET COUNT 182 10^3/uL (150-450); RED BLOOD COUNT 4.46 10^6/uL (3.72-5.28); RED CELL DISTRIBUTION WIDTH 14.5 % (11.5-14.0); SEGMENTED NEUTROPHILS % (AUTO) 49.2 % (42-78); TOTAL CELLS COUNTED % (AUTO) 100 %; WHITE BLOOD COUNT 6.5 10^3/uL (4.0-10.5)
[2018-05-03 16:37] LABS: ALANINE AMINOTRANSFERASE 34 U/L (9-52); ALBUMIN 3.7 g/dL (3.5-5.0); ALKALINE PHOSPHATASE 81 U/L (38-126); ANION GAP 8 (5-19); ASPARTATE AMINO TRANSFERASE 25 U/L (14-36); BILIRUBIN,DIRECT 0.3 mg/dL (0.0-0.4); BILIRUBIN,TOTAL 0.4 mg/dL (0.2-1.3); BLOOD UREA NITROGEN 11 mg/dL (7-20); CALCIUM 9.6 mg/dL (8.4-10.2); CARBON DIOXIDE 29 mmol/L (22-30); CHLORIDE 99 mmol/L (98-107); GLUCOSE 182 mg/dL (75-110); POTASSIUM 4.6 mmol/L (3.6-5.0); SODIUM 136.2 mmol/L (137-145); TOTAL PROTEIN 6.1 g/dL (6.3-8.2)
[2018-05-03 18:18] VITALS: BP 134/79
--- NOTE | 2018-05-03 21:44 | ER Document Report ---
Entered by YUNIER HOPE SCRIBE 05/03/18 1559 Acting as scribe for:JOSETTE MARTINEZ MD ED General - General Chief Complaint: Shortness Of Breath Stated Complaint: COUGH,CONGESTION Time Seen by Provider: 05/03/18 15:42 Primary Care Provider: ALLYSON ROGERS MD [NO LOCAL MD] - Follow up as needed Mode of Arrival: Ambulatory Information source: Patient Notes: Patient is a 57 year old female with type 2 diabetes, GERD, HTN presents to the emergency department complaining of cough and shortness of breath onset 3 days ago. Patient states she presented to her PCP 3 days ago due to similar symptoms and was given Augmentin and cough syrup. She states her symptoms have persisted despite being on Augmentin and using an albuterol inhaler every 2 hours. She describes her cough as productive with yellow/green/hermosillo sputum. She states her shortness of breath is exacerbated on exertion. She is currently prescribed Metformin. Patient reports receiving her flu vaccine this season. TRAVEL OUTSIDE OF THE [place] IN LAST 30 DAYS: No - Related Data Allergies/Adverse Reactions: levofloxacin [From vzaar] Allergy (Verified 05/03/18 14:28) Past Medical History - General Information source: Patient - Social History Smoking Status: Never Smoker Chew tobacco use (# tins/day): No Frequency of alcohol use: None Drug Abuse: None Family History: Malignancy - Mom- breast Ca, Other - Brother-HTN/SD Patient has suicidal ideation: No Patient has homicidal ideation: No - Past Medical History Cardiac Medical History: Reports: Hx Hypertension Pulmonary Medical History: Reports: Hx Asthma, Hx Bronchitis Neurological Medical History: Reports: Hx Migraine Endocrine Medical History: Reports: Hx Diabetes Mellitus Type 2 GI Medical History: Reports: Hx Gastroesophageal Reflux Disease Past Surgical History: Reports: Hx Abdominal Surgery, Hx Cardiac Surgery - Re pair vsd, Hx Orthopedic Surgery - Left hand, R carpal tunnel - Immunizations Hx Diphtheria, Pertussis, Tetanus Vaccination: Yes Review of Systems - Review of Systems Constitutional: No symptoms reported EENT: No symptoms reported Cardiovascular: No symptoms reported Respiratory: See HPI, Cough, Short of breath Gastrointestinal: No symptoms reported Genitourinary: No symptoms reported Female Genitourinary: No symptoms reported Musculoskeletal: No symptoms reported Skin: No symptoms reported Hematologic/Lymphatic: No symptoms reported Neurological/Psychological: No symptoms reported -: Yes All other systems reviewed and negative Physical Exam - Vital signs Vitals: Temp Pulse Resp BP Pulse Ox 98.8 F 94 18 131/74 H 95 05/03/18 14:38 05/03/18 14:38 05/03/18 14:38 05/03/18 14:38 05/03/18 14:38 - Notes Notes: GENERAL: Alert, interacts well. No acute distress. HEAD: Normocephalic, atraumatic. EYES: Pupils equal, round, and reactive to light. Extraocular movements intact. ENT: Oral mucosa dry, tongue midline. NECK: Full range of motion. Supple. Trachea midline. LUNGS: Minimal wheezes with cough. Harsh bronchitic cough. No respiratory distress. HEART: Regular rate and rhythm. No murmurs, gallops, or rubs. ABDOMEN: Soft, obese non-tende, no guarding, rigidity, or rebound. Non- distended. Bowel sounds present in all 4 quadrants. EXTREMITIES: Moves all 4 extremities spontaneously. NEUROLOGICAL: Alert and oriented x3. Normal speech. PSYCH: Normal affect, normal mood. SKIN: Warm, dry, normal turgor. No rashes or lesions noted. Course - Re-evaluation Re-evalutation: 05/03/18 17:20 Patient is feeling better after the nebulizer treatment with the lidocaine in it. I told her unfortunately that lidocaine will wear off. I reviewed the best management for this problem, to include different options to suppress cough, limit to eliminating talking, and complete rest in bed or the couch at home. She states she cannot take any time off from work so she is encouraged to keep her talking to a bare minimum while she is at work. - Vital Signs Vital signs: Temp Pulse Resp BP Pulse Ox 98.3 F 94 19 134/79 H 94 05/03/18 17:37 05/03/18 14:38 05/03/18 17:37 05/03/18 17:37 05/03/18 17:37 - Laboratory Result Diagrams: 05/03/18 16:00 05/03/18 16:00 Laboratory results interpreted by me: 05/03/18 05/03/18 05/03/18 16:00 16:00 16:00 RDW 14.5 H Eosinophils % 8.3 H Sodium 136.2 L Glucose 182 H Hemoglobin A1c % 6.8 H Total Protein 6.1 L - Diagnostic Test Radiology reviewed: Image reviewed - Chest x-ray does not show infiltrate or failure Discharge - Discharge Clinical Impression: Viral upper respiratory tract infection with cough, Hoarseness of voice Hyperglycemia due to type 2 diabetes mellitus Qualifiers: 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
== END 2018-05-03 17:40 | disposition home or self-care (01) ==
LOC: ER 14:27
DX: J06.9 Acute upper respiratory infection, unspecified (principal); B97.89 Other viral agents as the cause of diseases classified elsewhere; R49.0 Dysphonia; J45.909 Unspecified asthma, uncomplicated; E11.65 Type 2 diabetes mellitus with hyperglycemia; Z79.84 Long term (current) use of oral hypoglycemic drugs; I10 Essential (primary) hypertension; R05 Cough; R06.02 Shortness of breath; Z88.1 Allergy status to other antibiotic agents
CPT/HCPCS: 94640 ×2; 99285; 36415; 87070; 87205; 85025; 80053; 83036; 71045; J3490; J7512; J7620

== ENCOUNTER 2019-09-12 16:58 | Emergency (ER) | payer OTHER ==
[2019-09-12 17:18] VITALS: BP 146/72
[2019-09-12] MEDS ORDERED: IPRATROPIUM/ALBUTEROL 0.5-2.5 MG/3 ML AMPUL NEB ONE (17:41)
[2019-09-12] MEDS ORDERED: METHYLPREDNISOLONE INJ 125 MG/2 ML SDV IV ONE (17:41)
[2019-09-12] MEDS ORDERED: LORAZEPAM INJ 2 MG/1 ML VIAL IV ONE (17:41)
--- NOTE | 2019-09-12 18:05 | RADIOLOGY REPORT (SQ) ---
EXAM DESCRIPTION: CHEST 2 VIEWS IMAGES COMPLETED DATE/TIME: 09/12/2019 5:54 pm REASON FOR STUDY: cough COMPARISON: Chest radiograph 05/03/2018 TECHNIQUE: Frontal and lateral radiographic views of the chest acquired. NUMBER OF VIEWS: Two view. LIMITATIONS: None. FINDINGS: LUNGS AND PLEURA: No opacities, masses or pneumothorax. No pleural effusion. MEDIASTINUM AND HILAR STRUCTURES: No masses or contour abnormalities. HEART AND VASCULAR STRUCTURES: Heart normal size. No evidence for failure. BONES: No acute findings. HARDWARE: None in the chest. OTHER: No other significant finding. IMPRESSION: NO SIGNIFICANT RADIOGRAPHIC FINDING IN THE CHEST. TECHNICAL DOCUMENTATION: JOB ID: [id number] 2010 [employer]- All Rights Reserved Reading location - IP/workstation name: [email or web address]
--- NOTE | 2019-09-12 18:09 | ER Document Report ---
ED Respiratory Problem - General Chief Complaint: Shortness Of Breath Stated Complaint: COUGH Time Seen by Provider: 09/12/19 17:20 Primary Care Provider: DOMINGUEZ FOOTE MD [Primary Care Provider] - Follow up as needed Mode of Arrival: Ambulatory Information source: Patient Notes: Patient is a 59-year-old female comes emergency room complaining of increasing shortness of breath a productive cough and low-grade fever. Patient states that 1 month ago she did have sinus surgery which she states is been doing well with. She is currently on Keflex. Prior to surgery patient tested for the COVID-19 and she was negative. She states she is been very careful and not been about without even a mask but she started developing increasing shortness of breath which is different than her sinus congestion she used to have. She is having a productive yellowish-green type sputum with coughing. And that she is getting in some very difficult hacking cough sessions. She does her nebs at home last was done around 12 noon today. Patient denies smoking. She has a history of hypertension, borderline diabetes depression, she had history of migraine headaches and asthma. She states that she has a sensitivity to steroids makes her agitated and and sometimes angry but knows that it when she is wheezing she has to have it. TRAVEL OUTSIDE OF THE [place] IN LAST 30 DAYS: No - HPI Patient complains to provider of: Asthma, Cough, Short of breath Onset: Last week Duration: Continuous, Worse/persistent Initiating Event: URI Quality of pain: Achy Severity: Moderate Pain Level: 3 Context: Recent surgery Short of Breath: Moderate Cough: Productive Sputum amount: Moderate Sputum color: Rodriguez, Yellow Sputum consistency: Mucoid, Thick At home treatment: Bronchodilators Associated symptoms: Cough, Short of breath Similar symptoms previously: Yes Recently seen / treated by doctor: No - Related Data Allergies/Adverse Reactions: levofloxacin [From Levaquin] Allergy (Verified 05/03/18 14:28) Past Medical History - General Information source: Patient - Social History Smoking Status: Former Smoker Cigarette use (# per day): No Chew tobacco use (# tins/day): No Smoking Education Provided: No Frequency of alcohol use: None Drug Abuse: None Lives with: Family Family History: Malignancy - Mom- breast Ca, Other - Brother-HTN/AK Patient has homicidal ideation: No - Past Medical History Cardiac Medical History: Reports: Hx Hypertension Pulmonary Medical History: Reports: Hx Asthma, Hx Bronchitis Neurological Medical History: Reports: Hx Migraine Endocrine Medical History: Reports: Hx Diabetes Mellitus Type 2 Renal/ Medical History: Denies: Hx Peritoneal Dialysis GI Medical History: Reports: Hx Gastroesophageal Reflux Disease Psychiatric Medical History: Reports: Hx Depression Past Surgical History: Reports: Hx Abdominal Surgery, Hx Cardiac Surgery - Repair vsd, Hx Orthopedic Surgery - Left hand, R carpal tunnel - Immunizations Hx Diphtheria, Pertussis, Tetanus Vaccination: Yes Review of Systems - Review of Systems Constitutional: Fever EENT: See HPI Cardiovascular: No symptoms reported Respiratory: Cough, Short of breath, Wheezing Gastrointestinal: No symptoms reported Genitourinary: No symptoms reported Female Genitourinary: No symptoms reported Musculoskeletal: No symptoms reported Skin: No symptoms reported Hematologic/Lymphatic: No symptoms reported Neurological/Psychological: No symptoms reported -: Yes All other systems reviewed and negative Physical Exam - Vital signs Vitals: Temp Pulse Resp BP Pulse Ox 99.1 F 95 18 146/72 H 99 09/12/19 17:16 09/12/19 17:16 09/12/19 17:16 09/12/19 17:16 09/12/19 17:16 Interpretation: Hypertensive - Notes Notes: PHYSICAL EXAMINATION: GENERAL: Patient is a well-nourished well-developed 59-year-old female who is in no apparent distress on examination this evening. She does appear somewhat uncomfortable. And she appears worried. HEAD: Atraumatic, normocephalic. EYES: Pupils equal round and reactive to light, extraocular movements intact, conjunctiva are normal. ENT: Examination patient's head and upper airway showed nasal mucosa be erythematous and edematous with some rhinorrhea noted that yellowish in color. No frontal or maxillary sinus tenderness to palpation. Bilateral TMs bulging but no air-fluid levels noted. Posterior pharynx shows some mild erythema with some drainage in the posterior pharynx but no exudate noted. Airways patent. NECK: Normal range of motion, supple without lymphadenopathy LUNGS: Auscultation patient's lungs show bilateral breath sounds decreased throughout she has auscultated inspiratory and expiratory wheeze with some rhonchi right greater than left. HEART: Regular rate and rhythm without murmurs Female : deferred Musculoskeletal: Normal range of motion, no pitting or edema. No cyanosis. NEUROLOGICAL: Normal speech, normal gait. Normal sensory, motor exams PSYCH: Normal mood, normal affect. SKIN: Warm, Dry, normal turgor, no rashes or lesions noted. Course - Re-evaluation Re-evalutation: 09/12/19 19:34 Patient's x-ray came back negative for acute findings. Also her labs came back looking relatively good with no white count and her d-dimer was normal. However patient's lungs sounded really bad she had inspiratory expiratory wheeze with some rhonchi may be her baseline however she is on Keflex chronically for her sinuses which may be hiding something from us given that she is just got out of surgery I am going to go ahead and put her on the Z-Stu just to make sure there is not a pneumonia that is brewing there. We will place her on the steroids as well and she will follow-up with her primary care and surgeon for the surgery this week. I also informed patient that she needs to be treated as if she has the coronavirus at this time and she needs to self isolate and she also needs to social distance at all times while wearing a mask. Patient states she understands this. Also informed her that she should be called only if she has a positive test but have been instructed her that she can come to medical records and seed cone picker a copy of her results after 5 or 6 days. - Vital Signs Vital signs: Temp Pulse Resp BP Pulse Ox 99.1 F 95 18 146/72 H 99 09/12/19 17:20 09/12/19 17:16 09/12/19 17:16 09/12/19 17:16 09/12/19 17:16 - Laboratory Result Diagrams: 09/12/19 18:10 09/12/19 18:10 Laboratory results interpreted by me: 09/12/19 09/12/19 18:10 18:10 RDW 14.2 H Sodium 133.9 L Glucose 189 H AST 47 H ALT 40 H Discharge - Discharge Clinical Impression: Bronchitis after surgery Asthma attack Qualifiers: Asthma severity: moderate Asthma persistence: persistent Qualified Code(s): J45.41 - Moderate persistent asthma with (acute) exacerbation Sinusitis Qualifiers: Sinusitis location: unspecified location Chronicity: subacute Qualified Code(s): J01.90 - Acute sinusitis, unspecified Condition: Stable Disposition: HOME, SELF-CARE Instructions: Asthma ([facility]), Bronchitis With Bronchospasm (Wheezing) ([facility]), Sinusitis ([facility]) Additional Instructions: As we discussed your labs are good but you are also on antibiotics this may be clouding the actual problem. Year lungs had wheezing and insulin junk scattered throughout them. So I am concerned may be an early pneumonia especially after the surgery of sinuses. I highly recommend that you follow-up with your surgeon for them to reevaluate you as well as your primary care provider. Continue with your nebulizer treatments every 6 hours. I am going to put you on Zithromax just for the possibility that this may be a early presentation of pneumonia that has not manifested itself completely. I and is also possibility that you have come in contact with coronavirus somewhere and this is early stage of that as well. Given that he should treat yourself until you get the results back as be ing positive and isolate yourself from others wearing a mask at all times and using social distancing. Should you have symptoms worsen or you spike fevers that are not controlled on Tylenol or Motrin or shortness of breath gets worse return to ER for reevaluation. Prescriptions: Methylprednisolone [Medrol Dosepack (4 mg/Tab) 21 Tab/Dosepak] 4 mg PO ASDIR PRN 6 Days #21 tab.ds.pk PRN Reason: Azithromycin [Zithromax 250 mg Tablet] 250 mg PO ASDIR PRN #6 tablet PRN Reason: Forms: Elevated Blood Pressure Referrals: DOMINGUEZ FOOTE MD [Primary Care Provider] - Follow up as needed
[2019-09-12 18:39] LABS: ABSOLUTE EOSINOPHILS # (AUTO) 0.3 10^3/uL (0.0-0.6); ABSOLUTE LYMPHOCYTES (AUTO) 2.6 10^3/uL (0.5-4.7); ABSOLUTE MONOCYTES (AUTO) 0.7 10^3/uL (0.1-1.4); ABSOLUTE NEUT (AUTO) 4.1 10^3/uL (1.7-8.2); BASOPHILS % (AUTO) 0.6 % (0-2); EOSINOPHILS % (AUTO) 3.4 % (0-6); HEMATOCRIT 40.9 % (36.0-47.0); HEMOGLOBIN 13.8 g/dL (12.0-15.5); LYMPHOCYTES % (AUTO) 33.6 % (13-45); MEAN CORPUSCULAR HEMOGLOBIN 29.5 pg (27.0-33.4); MEAN CORPUSCULAR HGB CONC 33.9 g/dL (32.0-36.0); MEAN CORPUSCULAR VOLUME 87 fl (80-97); PLATELET COUNT 213 10^3/uL (150-450); RED CELL DISTRIBUTION WIDTH 14.2 % (11.5-14.0); SEGMENTED NEUTROPHILS % (AUTO) 53.4 % (42-78); TOTAL CELLS COUNTED % (AUTO) 100 %; WHITE BLOOD COUNT 7.6 10^3/uL (4.0-10.5)
[2019-09-12 19:21] LABS: ALBUMIN 4.3 g/dL (3.5-5.0); ALKALINE PHOSPHATASE 99 U/L (38-126); ANION GAP 7 (5-19); ASPARTATE AMINO TRANSFERASE 47 U/L (14-36); BILIRUBIN,TOTAL 0.3 mg/dL (0.2-1.3); BLOOD UREA NITROGEN 16 mg/dL (7-20); CALCIUM 9.5 mg/dL (8.4-10.2); CARBON DIOXIDE 25 mmol/L (22-30); CHLORIDE 102 mmol/L (98-107); GLUCOSE 189 mg/dL (75-110); POTASSIUM 4.3 mmol/L (3.6-5.0)
== END 2019-09-12 19:59 | disposition home or self-care (01) ==
LOC: ER 16:58
DX: J45.41 Moderate persistent asthma with (acute) exacerbation (principal); J01.90 Acute sinusitis, unspecified; R06.02 Shortness of breath; R05 Cough; R50.9 Fever, unspecified; J34.89 Other specified disorders of nose and nasal sinuses; I10 Essential (primary) hypertension; E11.9 Type 2 diabetes mellitus without complications; Z79.2 Long term (current) use of antibiotics; Z98.890 Other specified postprocedural states; Z79.899 Other long term (current) drug therapy; Z20.828 Contact with and (suspected) exposure to other viral communicable diseases; Z87.891 Personal history of nicotine dependence; Z88.1 Allergy status to other antibiotic agents
CPT/HCPCS: 94640; 99283; 96374; 96375; 36415; 87040; 85025; 87635; 80053; 85379; 71046; J2930; J2060; C9803

== ENCOUNTER 2019-10-06 16:09 | Emergency (ER) | payer OTHER ==
--- NOTE | 2019-10-06 16:26 | ER Document Report ---
ED Medical Screen (RME) - General Chief Complaint: Leg Swelling Stated Complaint: LEG PAIN/SWELLING Time Seen by Provider: 10/06/19 16:20 Primary Care Provider: DOMINGUEZ FOOTE MD [Primary Care Provider] - Follow up as needed Information source: Patient Notes: Patient presents complaining of bilateral lower extremity swelling for the past 5 days. Patient states the right leg is more swollen than the left and occasionally is tender with certain movements. Patient denies any chest pain or dyspnea. Patient denies any fever. Patient states she did recently get a PICC line placed to treat a lung infection although denies any history of pneumonia. I have greeted and performed a rapid initial assessment of this patient. A comprehensive ED assessment and evaluation of the patient, analysis of test results and completion of the medical decision making process will be conducted by additional ED providers. TRAVEL OUTSIDE OF THE [place] IN LAST 30 DAYS: No - Related Data Allergies/Adverse Reactions: levofloxacin [From Levaquin] Allergy (Verified 05/03/18 14:28) Past Medical History - Past Medical History Cardiac Medical History: Reports: Hx Hypertension Pulmonary Medical History: Reports: Hx Asthma, Hx Bronchitis Neurological Medical History: Reports: Hx Migraine Endocrine Medical History: Reports: Hx Diabetes Mellitus Type 2 Renal/ Medical History: Denies: Hx Peritoneal Dialysis GI Medical History: Reports: Hx Gastroesophageal Reflux Disease Psychiatric Medical History: Reports: Hx Depression Past Surgical History: Reports: Hx Abdominal Surgery, Hx Cardiac Surgery - Repair vsd, Hx Orthopedic Surgery - Left hand, R carpal tunnel - Immunizations Hx Diphtheria, Pertussis, Tetanus Vaccination: Yes Physical Exam - Vital signs Vitals: Temp Pulse Resp BP Pulse Ox 98.6 F 96 16 134/74 H 100 10/06/19 16:15 10/06/19 16:15 10/06/19 16:15 10/06/19 16:15 10/06/19 16:15 - Notes Notes: Bilateral lower extremity swelling from the knee distally, right worse than left, breath sounds clear bilaterally Course - Vital Signs Vital signs: Temp Pulse Resp BP Pulse Ox 98.6 F 96 16 134/74 H 100 10/06/19 16:15 10/06/19 16:15 10/06/19 16:15 10/06/19 16:15 10/06/19 16:15 Doctor's Discharge - Discharge Referrals: DOMINGUEZ FOOTE MD [Primary Care Provider] - Follow up as needed
[2019-10-06 17:00] LABS: ABSOLUTE EOSINOPHILS # (AUTO) 0.2 10^3/uL (0.0-0.6); ABSOLUTE LYMPHOCYTES (AUTO) 2.5 10^3/uL (0.5-4.7); ABSOLUTE MONOCYTES (AUTO) 0.7 10^3/uL (0.1-1.4); ABSOLUTE NEUT (AUTO) 2.6 10^3/uL (1.7-8.2); BASOPHILS % (AUTO) 0.8 % (0-2); EOSINOPHILS % (AUTO) 3.2 % (0-6); HEMATOCRIT 40.1 % (36.0-47.0); HEMOGLOBIN 13.6 g/dL (12.0-15.5); LYMPHOCYTES % (AUTO) 41.9 % (13-45); MEAN CORPUSCULAR HEMOGLOBIN 29.7 pg (27.0-33.4); MEAN CORPUSCULAR HGB CONC 33.9 g/dL (32.0-36.0); MEAN CORPUSCULAR VOLUME 88 fl (80-97); MONOCYTES % (AUTO) 11.4 % (3-13); PLATELET COUNT 196 10^3/uL (150-450); RED BLOOD COUNT 4.58 10^6/uL (3.72-5.28); RED CELL DISTRIBUTION WIDTH 14.6 % (11.5-14.0); SEGMENTED NEUTROPHILS % (AUTO) 42.7 % (42-78); TOTAL CELLS COUNTED % (AUTO) 100 %; WHITE BLOOD COUNT 6.1 10^3/uL (4.0-10.5)
[2019-10-06 17:16] LABS: ALBUMIN 3.9 g/dL (3.5-5.0); ALKALINE PHOSPHATASE 94 U/L (38-126); ANION GAP 8 (5-19); ASPARTATE AMINO TRANSFERASE 43 U/L (14-36); BILIRUBIN,DIRECT 0.2 mg/dL (0.0-0.4); BILIRUBIN,TOTAL 0.6 mg/dL (0.2-1.3); BLOOD UREA NITROGEN 11 mg/dL (7-20); CALCIUM 9.4 mg/dL (8.4-10.2); CARBON DIOXIDE 29 mmol/L (22-30); CHLORIDE 99 mmol/L (98-107); GLUCOSE 252 mg/dL (75-110); POTASSIUM 4.3 mmol/L (3.6-5.0); TOTAL PROTEIN 6.2 g/dL (6.3-8.2)
[2019-10-06] MEDS ORDERED: ACETAMINOPHEN 325 MG TABLET PO ONE (19:13)
--- NOTE | 2019-10-06 19:23 | ER Document Report ---
Entered by CYRUS RAY SCRIBE 10/06/19 190 Acting as scribe for:CHRIS ROBLERO, DO ED Extremity Problem, Lower - General Chief Complaint: Leg Swelling Stated Complaint: LEG PAIN/SWELLING Time Seen by Provider: 10/06/19 16:20 Primary Care Provider: DOMINGUEZ FOOTE MD [Primary Care Provider] - Follow up as needed Information source: Patient Notes: This 59 year old female patient s/p PICC line placement with continuous zosyn infusion since friday for recurrent URIs presents today with complaints of bilateral foot swelling, right > left. Patient has had leg swelling with associated RLE erythema since friday and it has become worse since onset. She mentions she has had a productive cough which is nothing new for her because of her recurrent URIs. She denies fevers. TRAVEL OUTSIDE OF THE [place] IN LAST 30 DAYS: No - Related Data Allergies/Adverse Reactions: levofloxacin [From Levaquin] Allergy (Verified 05/03/18 14:28) Past Medical History - General Information source: Patient - Social History Smoking Status: Former Smoker - quit in 1990 Cigarette use (# per day): No Frequency of alcohol use: None Drug Abuse: None Lives with: Alone Family History: Reviewed & Not Pertinent, Malignancy - Mom- breast Ca, Other - Brother-HTN/[place] Patient has homicidal ideation: No - Past Medical History Cardiac Medical History: Reports: Hx Hypertension Pulmonary Medical History: Reports: Hx Asthma, Hx Bronchitis Neurological Medical History: Reports: Hx Migraine Endocrine Medical History: Reports: Hx Diabetes Mellitus Type 2 GI Medical History: Reports: Hx Gastroesophageal Reflux Disease Psychiatric Medical History: Reports: Hx Depression Infectious Medical History: Reports: Other - PICC line for continuous Zosyn for recurring URIs Past Surgical History: Reports: Hx Abdominal Surgery, Hx Cardiac Surgery - Repair vsd, Hx Orthopedic Surgery - Left hand, R carpal tunnel - Immunizations Hx Diphtheria, Pertussis, Tetanus Vaccination: Yes Review of Systems - Review of Systems Constitutional: denies: Fever EENT: No symptoms reported Cardiovascular: No symptoms reported Respiratory: See HPI, Cough Gastrointestinal: No symptoms reported Genitourinary: No symptoms reported Female Genitourinary: No symptoms reported Musculoskeletal: See HPI, Ankle swelling Skin: See HPI, Change in color Hematologic/Lymphatic: No symptoms reported Neurological/Psychological: No symptoms reported -: Yes All other systems reviewed and negative Physical Exam - Vital signs Vitals: Temp Pulse Resp BP Pulse Ox 98.6 F 96 16 134/74 H 100 10/06/19 16:15 10/06/19 16:15 10/06/19 16:15 10/06/19 16:15 10/06/19 16:15 - Notes Notes: Physical Exam: General: Alert, appears well. HEENT: Normocephalic. Atraumatic. PERRL. Extraocular movements intact. Oropharynx clear. Neck: Supple. Non-tender. Respiratory: No respiratory distress. Clear and equal breath sounds bilaterally. Cardiovascular: Regular rate and rhythm. Abdominal: Obese. Non-tender. No distension. Normal Bowel Sounds. Back: No gross abnormalities. Extremities: Moves all four extremities. Upper extremities: Normal inspection. Normal ROM. Lower extremities: Lower extremity edema right > left, see skin exam. Normal ROM. Neurological: Normal cognition. AAOx4. Normal speech. Psychological: Normal affect. Normal Mood. Skin: There is a 8cm x 4cm area of erythema, warmth, and tenderness to palpation over right distal leg. Course - Re-evaluation Re-evalutation: 10/06/19 20:41 MDM 59 year old female with right leg redness and sts and pain. Exam is consistent with cellulitis, however pt is on a continuous infusion of Zosyn. MRSA would not be covered by this and I have discussed this pt with (ECU ID) and he feels a single dose of Vancomycin here is reasonable as well as follow up with Dr. Jay tomorrow. I have relayed this to the pt and she e xpressed understanding. She developed a gradual onset frontal headache she describes as a "migraine" and she feels a bit better here after acetaminophen and po fluids. - Vital Signs Vital signs: Temp Pulse Resp BP Pulse Ox 98.6 F 96 16 134/74 H 100 10/06/19 16:15 10/06/19 16:15 10/06/19 16:15 10/06/19 16:15 10/06/19 16:15 - Laboratory Result Diagrams: 10/06/19 16:45 10/06/19 16:45 Laboratory results interpreted by me: 10/06/19 10/06/19 16:45 16:45 RDW 14.6 H Sodium 135.7 L Glucose 252 H AST 43 H ALT 40 H Total Protein 6.2 L - Diagnostic Test Radiology reviewed: Reports reviewed Discharge - Discharge Clinical Impression: Cellulitis of right leg Condition: Stable Disposition: HOME, SELF-CARE Instructions: MRSA Cellulitis ([facility]), Cellulitis ([facility]), Hyperglycemia ([facility]) Additional Instructions: Your blood sugar was elevated here and should be rechecked. As discussed, please call Dr. Jay in the morning for follow up. Return here for increased pain, fever or other problems or concerns. Referrals: DOMINGUEZ FOOTE MD [Primary Care Provider] - 10/06/19 I personally performed the services described in the documentation, reviewed and edited the documentation which was dictated to the scribe in my presence, and it accurately records my words and actions.
--- NOTE | 2019-10-06 19:38 | RADIOLOGY REPORT (SQ) ---
EXAM DESCRIPTION: VENOUS BILATERAL LOWER IMAGES COMPLETED DATE/TIME: 10/06/2019 7:30 pm REASON FOR STUDY: bilat LE swelling R>L COMPARISON: None. TECHNIQUE: Dynamic and static garcia scale and color images acquired of both lower extremity venous sy stems. Selected spectral images acquired with additional compression and augmentation maneuvers. Imag es stored on PACS. LIMITATIONS: None. FINDINGS: RIGHT LEG COMMON FEMORAL AND FEMORAL: Normal phasicity, compression and augmentation. No visualized echogenic m aterial on garcia scale. No defects on color images. POPLITEAL: Normal compression and augmentation. No visualized echogenic material on garcia scale. No de fects on color images. CALF VESSELS: Normal compression and augmentation. No visualized echogenic material on garcia scale. No defects on color image. GSV AND SSV: Normal compression. No visualized echogenic material on garcia scale. No defects on color images. ANY DEEP VENOUS INSUFFICIENCY: Not evaluated. ANY EVIDENCE OF POPLITEAL CYST: No. OTHER: No other significant finding. LEFT LEG COMMON FEMORAL AND FEMORAL: Normal phasicity, compression and augmentation. No visualized echogenic m aterial on garcia scale. No defects on color images. POPLITEAL: Normal compression and augmentation. No visualized echogenic material on garcia scale. No de fects on color images. CALF VESSELS: Normal compression and augmentation. No visualized echogenic material on garcia scale. No defects on color images. GSV AND SSV: Normal compression. No visualized echogenic material on garcia scale. No defects on color images. ANY DEEP VENOUS INSUFFICIENCY: Not evaluated. ANY EVIDENCE POPLITEAL CYST: No. OTHER: No other significant finding. IMPRESSION: NO EVIDENCE DVT OR SVT IN EITHER LEG. TECHNICAL DOCUMENTATION: JOB ID: [id number] 2010 [employer]- All Rights Reserved Reading location - IP/workstation name: [email or web address]
[2019-10-06] MEDS ORDERED: VANCOMYCIN HCL INJ 1000 MG VIAL IV ONE (20:01)
[2019-10-06] MEDS ORDERED: HYDROCODONE/ACETAMINOPHEN 5-325 MG (6 TAB/ER DISP) PO PRN (20:48)
[2019-10-06 22:45] VITALS: BP 146/79
== END 2019-10-06 23:20 | disposition home or self-care (01) ==
LOC: ER 16:09
DX: L03.115 Cellulitis of right lower limb (principal); J06.9 Acute upper respiratory infection, unspecified; R05 Cough; R51 Headache; I10 Essential (primary) hypertension; J45.909 Unspecified asthma, uncomplicated; E11.9 Type 2 diabetes mellitus without complications; Z88.1 Allergy status to other antibiotic agents; Z87.891 Personal history of nicotine dependence
CPT/HCPCS: 99285; 96374; 36415; 85025; 80053; 83880; 93970; J3370; J1642